=== PATIENT | male | born 1945 | race Hispanic/Latino ===

== ENCOUNTER 2017-11-05 08:55 | Inpatient (IN) | payer MEDICARE ==
[2017-11-05 09:39] LABS: #Eosinphils 0.1 thou/uL (0.0-0.7); #Monocytes 0.5 thou/uL (0.11-0.59); #Neutrophils 11.4 thou/uL (1.40-6.50); %Basophils 0.3 % (0.0-1.0); %Eosinophils 0.5 % (0.0-10.0); %Lymphocytes 7.4 % (21.0-51.0); %Neutrophils 87.9 % (42.0-75.0); Hemoglobin 14.6 g/dL (14.0-18.0); Mean Corpuscular HGB CONC 32.5 g/dL (32.0-36.0); Mean Corpuscular Hemoglobin 29.3 pg (27.0-31.0); Mean Corpuscular Volume 90.2 fl (80.0-94.0); Mean Platelet Volume 7.9 fL (7.4-10.4); Platelet Count 228 thou/uL (130-400); RBC Distribution Width 11.5 % (11.5-14.5); Red Blood Cell (RBC) Count 4.97 mill/uL (4.70-6.10)
[2017-11-05 09:49] LABS: PTT 23.8 SEC (22.9-36.1)
[2017-11-05 09:50] LABS: INR-International Normal Ratio 1.1; Prothrombin Time 14.2 SEC (12.0-14.7)
[2017-11-05 10:01] LABS: ALT (SGPT) 41 U/L (8-55); AST (SGOT) 25 U/L (5-34); Albumin 4.1 g/dL (3.4-4.8); Alkaline Phosphatase 79 U/L (40-150); Anion Gap 16 mmol/L (10-20); BUN (Urea Nitrogen) 24 mg/dL (8.4-25.7); Bilirubin, Total 0.4 mg/dL (0.2-1.2); CK (CPK) 122 U/L (30-200); Calc. Creatinine Clearance 0 mL/min (70-130); Calcium 9.4 mg/dL (7.8-10.44); Carbon Dioxide 22 mmol/L (23-31); Chloride 103 mmol/L (98-107); Estimated GFR-MDRD 41; Globulin 3.3 g/dL (2.4-3.5); Glucose 261 mg/dL (83-110); Lipase 16 U/L (8-78); Potassium 4.9 mmol/L (3.5-5.1); Protein, Total 7.4 g/dL (5.8-8.1); Sodium 136 mmol/L (136-145)
--- NOTE | 2017-11-05 10:02 | RAD ---
FRONTAL VIEW CHEST: Comparison: 07-05-10 Indication: Altered mental status. Patient found down. FINDINGS: The cardiomediastinal silhouette is prominent. There is mild patchy density at each lower lung zone w ith subtle obscuration of the right lateral costophrenic sulcus that may relate to small volume pleur al fluid versus volume loss. Chest is otherwise similar to 07-05-10. IMPRESSION: Prominent cardiomediastinal silhouette. Mild bibasilar patchy opacities as above. POS: H
[2017-11-05 10:04] LABS: CKMB 1.8 ng/mL (0-6.6)
[2017-11-05 10:19] LABS: Troponin I Less than 0.010 ng/mL (< 0.028)
[2017-11-05 10:28] LABS: Bilirubin Negative (Negative); Blood, Urine Negative (Negative); Clarity CLEAR (Clear); Glucose, Urine (Dipstick) 250 mg/dL (Negative); Leukocyte Negative (Negative); Nitrite Negative (Negative); Protein, Urine (Dipstick) Trace mg/dL (Neg-Trace); Specific Gravity, Urine 1.018 (1.002-1.036); Urobilinogen 0.2 mg/dL (0.2-1.0); pH, Urine 6.5 (5.0-9.0)
--- NOTE | 2017-11-05 10:50 | CT ---
CT BRAIN WITHOUT CONTRAST: Date: 11/05/17 HISTORY: Altered mental status. COMPARISON: CT brain dated 05/07/16. FINDINGS: There is encephalomalacia of the inferior right cerebellum. There is left frontal encephalomalacia. C hronic severe microangiopathic changes. Old right temporal infarction. No hemorrhage. No midline shift or mass effect. Mild mucosal thickening of the ethmoids. Mastoids are clear. Calvarium is intact. IMPRESSION: Extensive chronic multifocal chronic infarctions, as well as atrophy. No acute intracranial abnormali ty. POS: OFF
[2017-11-05] MEDS ORDERED: Acetaminophen 325 MG TAB PO PRN (12:14)
[2017-11-05] MEDS ORDERED: Dextrose 5% in Water 1,000 ML IV PRN (12:14)
[2017-11-05] MEDS ORDERED: Dextrose 50% Abboject 50 ML SYRINGE SLOW IVP PRN (12:14)
[2017-11-05] MEDS ORDERED: Acetaminophen 650 MG Suppository PR PRN (12:14)
[2017-11-05] MEDS ORDERED: HumaLOG 300 UNITS/3 ML VIAL SC PRN (12:14)
[2017-11-05] MEDS ORDERED: Ondansetron ODT 4 MG TAB PO PRN (12:14)
[2017-11-05] MEDS ORDERED: hydrALAZINE 20 MG/ML VIAL SLOW IVP PRN (12:20)
[2017-11-05 12:52] LABS: Troponin I Less than 0.010 ng/mL (< 0.028)
--- NOTE | 2017-11-05 13:19 | ULT ---
CAROTID ARTERIAL DOPPLER ULTRASOUND: DATE: 11/05/17 COMPARISON: 05/08/16. HISTORY: Left lower extremity weakness, assess for carotid artery disease. TECHNIQUE: Multiplanar Wilson scale sonographic imaging of the arterial structures of the neck obtained with color Doppler, including color flow and spectral analysis. FINDINGS: Antegrade blood flow and normal arterial waveforms are documented within the carotid and vertebral sy stem bilaterally. VESSEL PSV (cm/sec) EDV (cm/sec) Right CCA 82 15 Right ICA 62 17 Right ECA 81 15 Left CCA 83 13 Left ICA 42 15 Left ECA 63 10 ICA/CCA ratio is 0.8 on the right and 0.5 on the left. IMPRESSION: No hemodynamically significant stenosis on the basis of sonographic velocity criteria. POS: [facility]
--- NOTE | 2017-11-05 14:19 | HP ---
DATE OF ADMISSION: 11/05/2017 TIME OF SERVICE: 11:40. PRIMARY CARE PHYSICIAN: Dr. Chao at [facility]. CHIEF COMPLAINT: Altered mental status, left leg weakness. HISTORY OF PRESENT ILLNESS: Mr. Cantu is a 72-year-old male who speaks very little Israeli, who is a long-term resident over [facility] facility. The patient was last here in 04/2016, he presented at that time with right upper and lower extremity weakness. He had a right subarachnoid hemorrhage and was found to have a left thalamic infarct. At that time, he was sent to rehab initially and then to [facility] long-term. He normally gets around at the nursing facility in a wheelchair using his legs for propulsions. Today, he was found slumped over in his chair to an unknown side, not responding very clearly, and un able to move his left lower extremity. EMS was activated, he was brought to the emergency department for evaluation. In the ER, white blood cell count was slightly elevated at 13,000, lactic acid was 3.3, remainder of his lab work was fairly normal. CT of the brain was negative for acute changes. Chest x-ray showed mild patchy bilateral lower lobe opacities consistent with small volume fluid or volume loss. I did attempt to contact [facility], was put on hold and transferred 2 separate times and was hung upon both times and denies able to get any further history from the [facility]. The patient himself speaks very little Israeli. States he cannot move his left leg, although he does not seem too concerned about it. He says that is new today. Denies any other current complaints. Denies fevers or chills, no abdominal pain, no nausea and vomit ing, no chest pain, difficulty breathing. PAST MEDICAL HISTORY: 1. History of TIA. 2. History of subarachnoid hemorrhaging with right-sided defects. 3. History of cerebrovascular disease with thalamic infarct. 4. 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 5. Hypertension. 6. Diabetes mellitus type 2, non-insulin dependent. 7. GERD. 8. Glaucoma. 9. Dementia. 10. Unspecified mycosis? 11. CKD 3. PAST SURGICAL HISTORY: None. HOME MEDICATIONS: 1. Lipitor 20 mg p.o. at bedtime. 2. Glipizide 5 mg p.o. daily. 3. Losartan 100 mg daily. 4. Aspirin 325 mg daily. 5. MiraLax daily. 6. Tylenol p.r.n. 7. Trazodone 25 mg daily. 8. Travatan drops daily. ALLERGIES: NKDA. FAMILY HISTORY: Unknown. He denies history of cancer, blood tumors or free bleeders. SOCIAL HISTORY: Living at the [facility]. Negative habits x3. REVIEW OF SYSTEMS: A 10-point review of systems was performed. The patient denied any problems. Wh en asked specifically for each system, he denied any additional finding other than that was stated ab ove. PHYSICAL EXAMINATION: VITAL SIGNS: Temperature 97.5, pulse 89, blood pressure is 151/95, respiratory rate 18, satting 95% on room air. GENERAL: He is awake. He is alert. He is oriented to person and to [employer]. He does not know or can answer the name of the facility. HEENT: Normocephalic and atraumatic. Pupils are approximately 5 mm and reactive to light bilaterall y, mucous membranes moist. No visible lesions. No thrush. No uvula deviation. NECK: Supple. He has no lymphadenopathy, no JVD, no thyromegaly. Neck is supple. He has had sidra l carotid upstrokes. I do not appreciate bruits. LUNGS: Clear bilaterally. He has no wheezes, no rales, no rhonchi. He has good movement, good air exchange, and good chest excursion. It is symmetrical on both sides. He has no wheezes, rales, rhon chi or prolonged expiratory phase. CARDIOVASCULAR: He has normal cardia. Normal S1 and S2. I do not appreciate murmurs. He has no ru bs. ABDOMEN: Soft, slightly distended and tympanitic, but not tense. He has no rebound, rigidity, or gu arding. He has good bowel sounds in all 4 quadrants. EXTREMITIES: Show no cyanosis or clubbing. He has got trace edema in the bilateral lower extremitie s to the mid tibia level. He is able to move his right leg and perform most functions. His left low er leg is not moving much. SKIN: Warm, moist, and well perfused. He has no significant rashes or lesions. He does have some e xcoriations present on his bilateral lower legs. SKIN: Otherwise warm, moist, and well perfused. He has no other rashes or lesions. NEUROLOGIC: Shows cranial nerves II-XII grossly intact. He seems to have normal speech when he spea ks. He is alert and oriented x2 to person and city. His right upper extremity extensors are minimal to no function. He is able to squeeze my finger with 4/5 strength, but is unable to let go. His le ft upper extremity has 5/5 strength in all the extensor and flexor groups. Right lower extremity has 4-5/5 strength in the hip, thigh, and ankle extension and flexion. Left lower extremity has some mo vement with plantar stimulation mostly from the hip area. He is unable to withdraw from pain. LABORATORY DATA: On laboratory evaluation, sodium 136, potassium 4.9, chloride 103, bicarbonate 22, BUN 24, creatinine 1.65 and glucose of 261. Liver functions normal. CBC showed white count of 13.0, hemoglobin is 14.6, hematocrit of 44.9, platelets 270,000. He has pr fredo normal differential with 80% granulocytes. His BNP was 39.7. CK-MB of 1.8 and troponin I was l ess than 0.010. Ammonia level is normal 25. Lactic acid elevated at 3.3, INR 1.1, and TSH 4.55. RADIOGRAPHIC STUDIES: He had a CT scan of the brain that showed chronic microvascular changes and sc arring from his subarachnoid. Otherwise, negative. No acute changes. Chest x-ray showed mild patch y bilateral lower lobe opacities consistent with small volume fluid or volume loss. ASSESSMENT AND PLAN: 1. New left lower extremity paresis, appears patient may have had a cerebrovascular accident or stro ke. CT scan was negative for acute bleed. This would be likely ischemic. We will continue his aspi rin. We will continue his Lipitor, but increased to 40 mg at bedtime. We will get a fasting lipid p rofile in the morning. In the meantime, we will get his MRI and MRA of the brain, carotid ultrasound , and 2D echocardiogram. We will ask Neurology to evaluate. PT, OT and the speech therapy were cons ulted. 2. Hypertension. We will continue his losartan. 3. Diabetes mellitus type 2, hold glipizide for now and use sliding scale insulin. 4. Coronary artery disease. Start him on Protonix for gastrointestinal prophylaxis. 5. Glaucoma. Continue home eyedrops. 6. Dementia, stable. He is at his baseline per [facility] records. 7. Unspecified mycosis listed in his chart, unsure what that means. 8. Chronic kidney disease 3; creatinine normally 1.5-1.6. Glomerular filtration rate is in the 50s. This is unchanged from his normal. 9. The patient has an elevated white count, initially had an elevated heart rate that is improved, a nd lactic acid 3.3. I do not believe he is septic. We will continue to follow.
--- NOTE | 2017-11-05 16:52 | MRI ---
MRA [place] WITH 3D VOLUME RENDERING: Date: 11/05/16 CLINICAL HISTORY: Lower extremity paresis. History of right thalamic infarction. FINDINGS: There is limited evaluation of the vertebrobasilar system. Flow-related signal is seen within the dis yashira right vertebral artery and within the small caliber basilar artery. The distal left vertebral art sowmya likely terminates in PICA. This remains nonopacified by 3D [id number] imaging which therefore limits assessment. Each distal carotid artery is patent without high grade stenosis or occlusion. Bi lateral middle cerebral arteries are patent. Patent bilateral posterior communicating arteries are se en, which are prominent in size. There is small caliber of the bilateral P1 segments indicating type variant circulation. There is minimal flow-related signal in the left A1 segment and then not v isualized within the left A2 segment. A1 segment of right JED is patent. At the proximal aspect of th e A2 segment, there is diminutive flow which may be on the basis of focal stenosis or component of to rtuosity and artifact. Reference brain MRI for intracranial pathology. IMPRESSION: 1. Limited evaluation of vertebrobasilar system. There is nonvisualization of the distal left verteb ral artery. A diminutive basilar artery is present which may be on the basis of atherosclerosis. Ther e is also limited assessment of the dominant distal right vertebral artery. 2. Diseased left JED with moderate multifocal stenosis of left A1 and nonvisualization of left A2, a nd distally. 3. type variant circulation with diminutive bilateral P1 segments. The subsequent small calibe r bilateral CAP CUTTER reveal more distally located disease, left greater than right, notable at the P2-3 re gion. 4. Focal prominent stenosis at the proximal A2 segment right JED. POS: [facility]
--- NOTE | 2017-11-05 16:58 | MRI ---
MRI BRAIN WITHOUT IV CONTRAST: Date: 11/05/17 HISTORY: New left lower extremity paresis. Patient presents for altered mental status. The patient was last se en normal at approximately 6:30 this morning and was found slumped over in wheelchair. COMPARISON: 05/08/16. FINDINGS: There are scattered areas of restricted diffusion seen within the left frontal lobe, some of which ar e in a parafalcine location near the vertex, with additional areas in the anterior right frontal duke on, consistent with areas of lacunar infarction, a majority of which appear to be in the distribution of left anterior cerebral artery. As noted on the prior exam, there are areas of gliosis related to remote areas of infarction within t he bifrontal lobes, as well as involving the left posterior cerebral artery distribution and watershe d distribution of the left posterior cerebral and middle cerebral arteries. A few scattered areas of hemosiderin deposition are identified related to prior hemorrhagic conversion of areas of infarction. Increased FLAIR and T2-weighted signal intensity in the periventricular and subcortical white matter is again present, likely related to severe chronic small vessel ischemic changes. There is remote area of infarction again present in the right cerebellar hemisphere. Cerebral and cerebellar volume loss is again present. Ventricular system is stable in appearance comp ared to the prior study. The infarction in the left thalamus is less prominent on today's examination , and this is shown to represent an acute infarction on the study in 2016. Remote lacunar infarctions in each basal ganglia are present. IMPRESSION: 1. Scattered areas of acute infarction in the distribution of the right anterior cerebral artery, as well as in watershed distribution of the anterior right MCA/JED distribution. 2. Multiple bilateral remote infarctions as described above, as well as chronic small vessel ischemi c changes and involutional changes of the brain. CODE T. POS: [facility]
[2017-11-05 17:34] LABS: Lactic Acid 3.8 mmol/L (0.5-2.2)
[2017-11-05] MEDS ORDERED: Famotidine 20 MG TAB ONE (21:15)
[2017-11-05] MEDS ORDERED: Atorvastatin Calcium 40 MG TAB PO SCH (21:30)
[2017-11-05] MEDS: Atorvastatin Calcium 40 MG TAB PO SCH (22:43)
[2017-11-05] MEDS: Famotidine 20 MG TAB PO SCH (22:43)
[2017-11-05] MEDS: Sodium Chloride 0.9% 1,000 ML IV SCH (23:00)
[2017-11-06 00:14] VITALS: BMI 29.2
[2017-11-06] MEDS: cloNIDine 0.1 MG TAB PO PRN (02:20)
[2017-11-06 05:55] LABS: Hemoglobin A1c 7.1 % (4.0-6.0)
[2017-11-06 06:10] LABS: Anion Gap 12 mmol/L (10-20); BUN (Urea Nitrogen) 20 mg/dL (8.4-25.7); Calc. Creatinine Clearance 56 mL/min (70-130); Calcium 9.1 mg/dL (7.8-10.44); Carbon Dioxide 23 mmol/L (23-31); Cardiac Risk 2.8 (Less than 4.5); Chloride 106 mmol/L (98-107); Cholesterol 104 mg/dl (< 200 Desired); Estimated GFR-MDRD 50; Glucose 153 mg/dL (83-110); HDL Cholesterol 37 mg/dL (>60 Neg Risk); LDL Cholesterol, Calculated 56 mg/dL; Potassium 4.3 mmol/L (3.5-5.1); Sodium 137 mmol/L (136-145); Triglycerides 56 mg/dL (Less than 150)
[2017-11-06 06:13] LABS: #Eosinphils 0.1 thou/uL (0.0-0.7); #Lymphocytes 2.4 thou/uL (1.20-3.40); #Monocytes 0.6 thou/uL (0.11-0.59); #Neutrophils 6.6 thou/uL (1.40-6.50); %Basophils 0.4 % (0.0-1.0); %Eosinophils 0.8 % (0.0-10.0); %Lymphocytes 24.6 % (21.0-51.0); %Monocytes 6.5 % (0.0-10.0); %Neutrophils 67.7 % (42.0-75.0); Hemoglobin 13.1 g/dL (14.0-18.0); Mean Corpuscular Hemoglobin 29.7 pg (27.0-31.0); Mean Corpuscular Volume 90.1 fl (80.0-94.0); Mean Platelet Volume 8.1 fL (7.4-10.4); Platelet Count 220 thou/uL (130-400); RBC Distribution Width 11.5 % (11.5-14.5); Red Blood Cell (RBC) Count 4.42 mill/uL (4.70-6.10); White Blood Cell (WBC) Count 9.7 thou/uL (4.8-10.8)
[2017-11-06] MEDS ORDERED: Prevnar 13-Val Conj/PF 0.5 ML SYRINGE IM ONE (09:00)
[2017-11-06] MEDS ORDERED: FLU VACC TS2017-18 (>65YR) 0.5 ML SYRINGE IM ONE (09:00)
[2017-11-06] MEDS: Aspirin 325 MG TAB PO SCH (09:06)
[2017-11-06] MEDS: Losartan 25 MG TAB PO SCH (09:06)
[2017-11-06] MEDS: Sodium Chloride 0.9% 1,000 ML IV SCH ×2 (09:49→18:30)
--- NOTE | 2017-11-06 11:51 | PDOC.PN ---
- Subjective Encounter Start Date: 11/06/17 Encounter Start Time: 09:10 PT seen on rounds, no acute events overnight. oving left leg better, but still profoundly weak. nO FC, no N/v/D/C. MRI with R JAMIN distribution acute infarcts and watershed infarcts to R JAMIN and R MCA distribution. Jeanine po. Neuro has not seenyet, likely due to pt being held in ER 10 point ROS performed and neg for all system except as above - Objective MAR Reviewed: Yes Vital Signs & Weight: Vital Signs (12 hours) Pulse Pulse BP BP 11/06/17 09:15 72 70 164/83 H 167/83 H Result Diagrams: 11/06/17 05:05 11/06/17 05:05 Additional Labs: Accuchecks 11/06/17 11:13 POC Glucose 179 H Radiology Reviewed by me: Yes EKG Reviewed by me: Yes Phys Exam - Physical Examination Constitutional: NAD HEENT: PERRLA, moist MMs, sclera anicteric, oral pharynx no lesions Neck: no nodes, no JVD, supple, full ROM Respiratory: no wheezing, no rales, no rhonchi, clear to auscultation bilateral Cardiovascular: RRR, no significant murmur, no rub Gastrointestinal: soft, non-tender, no distention, positive bowel sounds Musculoskeletal: pulses present, edema present CN intact, RUE ith extensor weakness, flexors, RLE 4/5. LUe 5/5, LLE 2/5 Lymphatic: no nodes Psychiatric: normal affect, A&O x 3 Skin: no rash, normal turgor, cap refill <2 seconds Dx/Plan (1) Acute ischemic right JAMIN stroke Code(s): I63.521 - CEREB INFRC D/T UNSP OCCLS OR STENOS OF RIGHT ANT CEREB ART Status: Acute Comment: R jamin and mna watershed. echo pending. neuro consult pending (2) Diabetes Code(s): E11.9 - TYPE 2 DIABETES MELLITUS WITHOUT COMPLICATIONS Status: Acute Qualifiers: Diabetes mellitus type: type 2 Diabetes mellitus complication status: with unspecified complications (3) CKD (chronic kidney disease) stage 2, GFR 60-89 ml/min Code(s): N18.2 - CHRONIC KIDNEY DISEASE, STAGE 2 (MILD) Status: Chronic (4) Dyslipidemia Code(s): E78.5 - HYPERLIPIDEMIA, UNSPECIFIED Status: Chronic (5) HTN (hypertension) Code(s): I10 - ESSENTIAL (PRIMARY) HYPERTENSION Status: Chronic Qualifiers: Hypertension type: essential hypertension Qualified Code(s): I10 - Essential (primary) hypertension (6) Hx TIA/stroke w/o resid Code(s): Z86.73 - PRSNL HX OF TIA (TIA), AND CEREB INFRC W/O RESID DEFICITS Status: Chronic - Plan cont current plan of care, PT/OT, speech therapy * .
[2017-11-06] MEDS: Atorvastatin Calcium 40 MG TAB PO SCH (21:31)
[2017-11-06] MEDS: Famotidine 20 MG TAB PO SCH (21:31)
[2017-11-07] MEDS: cloNIDine 0.1 MG TAB PO PRN ×2 (00:40→12:00)
--- NOTE | 2017-11-07 03:10 | CON ---
DATE OF CONSULTATION: 11/06/2017 REFERRING PHYSICIAN: Dr. Nathaniel Gonzalez. REASON FOR CONSULTATION: Altered mental status. HISTORY OF PRESENT ILLNESS: Mr. Cantu is a 72-year-old male who has been concerned for e valuation of altered mental status. History is obtained from patient's medical chart as patient is u nable to provide any history. Apparently, patient has a history of stroke in 04/2016 at which time, he was brought into the [facility]. He had a right hemiparesis at that time, he was found t o have left thalamic infarct and right subarachnoid hemorrhage. He has been in a rehabilitation faci lity and into the long-term care detention. He was noted by detention staff to be not respondi ng very clearly, unable to move his left lower extremity, which prompted them to call EMS and patient was brought to the [place] [facility]. On arrival here, he had a CT scan of the head done, w hich showed no acute intracranial abnormality. He was noted to have elevated WBC and lactic acid. Nick kim was thus admitted for further evaluation. His chest x-ray also showed bilateral lower lobe opaciti es consistent with a small volume of fluid. PAST MEDICAL HISTORY: Significant for hypertension, diabetes, GERD, history of stroke, history of stephen barachnoid hemorrhage, glaucoma, dementia, and chronic kidney disease stage 3. PAST SURGICAL HISTORY: None significant. SOCIAL HISTORY: He denies any smoking. He does not smoke, drink alcohol, or use illicit drugs. He is currently living at detention facility. CURRENT MEDICATIONS: Please review MAR. ALLERGIES: No known drug allergies. FAMILY HISTORY: Noncontributory. REVIEW OF SYSTEMS: Unable to perform. PHYSICAL EXAMINATION: VITAL SIGNS: Blood pressure 154/82, pulse of 70, temperature of 97.8, respirations of 18, O2 sats of 97% on room air. GENERAL: Well-developed, well-nourished male in no apparent distress. RESPIRATORY: Clear to auscultation bilaterally. CARDIOVASCULAR: Regular rate and rhythm. NEUROLOGIC: Mental status: Patient is awake and alert and oriented x2. He is able to state his nam e and current location. He is able to follow some simple commands. Speech and language: Somewhat d ysarthric. Cranial nerves: Pupils are 3 mm and reactive. He blinks to threat on both sides. Face appears symmetric. Tongue and uvula are midline. Motor exam showed normal tone and bulk with 5/5 st rength in both upper extremities. He was able to move his right lower extremity with a 5/5 strength to hip flexion and foot dorsiflexion. There was no movement noted in the left lower extremity. Sens ory: He grimaces to pain on the left both upper and lower extremities. LABORATORY DATA: Reviewed, which included CBC, coag panel, CMP, lipid profile, and urinalysis, which is significant for hemoglobin of 13.1, hematocrit of 39.9, WBC of 13.0, creatinine of 1.4, glucose o f 200, otherwise unremarkable. IMAGING STUDIES: MRI brain without contrast was reviewed, which showed watershed infarct in the righ t JED, MCA territory as well as posterior right JED ischemic infarct. MR angiogram of the head was r eviewed, which showed diseased left JED with moderate multifocal stenosis of the left A1 and nonvisua lization of left A2. Carotid Doppler results were reviewed, which showed hemodynamically significant stenosis on both carotid arteries. IMPRESSION: 1. Watershed infarct involving the right anterior cerebral artery. 2. Hypertension. 3. Dementia. ASSESSMENT AND PLAN: Mr. Cantu is a 72-year-old male, presented with the left lower extr emity weakness. He is found to have a posterior right JED territory ischemic infarct along with wate rshed infarcts involving the right JED and MCA territory. At this time, I will recommend continuing PT, OT, speech therapy. I would also agree with increasing his aspirin to 325 mg daily. I would rec ommend to keep his systolic blood pressure greater than 110 or above. Continue supportive care. Chanelle palomares is okay to be discharged to a detention when medically ready.
[2017-11-07] MEDS: Sodium Chloride 0.9% 1,000 ML IV SCH (04:52)
--- NOTE | 2017-11-07 09:12 | DIS ---
DATE OF ADMISSION: 11/06/2017 DATE OF DISCHARGE: 11/07/2017 DISCHARGE DIAGNOSES: 1. Acute right posterior, anterior cerebral artery ischemic stroke. 2. Hyperlipidemia. 3. Hypertension. 4. Diabetes mellitus type 2, non-insulin dependent. 5. Chronic kidney disease stage 2. CONSULTATIONS: Neurology, Dr. Napoles. PROCEDURES: A 2D echocardiogram on 11/06/2017 that revealed EF of 55%-60%, trace MR, mild TR and sli ghtly elevated pulmonary artery pressure of 34 mm, carotid Doppler study on 11/05/2017 that showed he modynamic significant stenosis based on sonographic velocity data, brain MRI showed a right JED distr ibution and right MCA distribution, watershed acute infarcts. MRI showed multiple areas of significa nt diffuse stenotic cerebrovascular disease. HOSPITAL COURSE: Mr. Cantu is a 72-year-old gentleman who is a resident of a intermediate. He cruz d a history of a subarachnoid hemorrhage and prior thalamic stroke with residual right-sided weakness , but still functional. He stays in the wheelchair, motors around the intermediate. He was noted on the day of admission to be slumped over in his chair, difficult to arouse and not using his left leg . He was sent to the emergency department for evaluation. There, findings were confirmed, we were called for admission. The patient was initially placed in observation; however, initial MRI showed acute infarct and he was advanced to full inpatient admission. MRI and MRA were performed, 2D echocardiogram and carotid ult rasound were done with the above findings. Neurology was consulted, the patient continued on full do se of aspirin and Lipitor pending Neurology evaluation. The patient had some improvement in function from 11/05/2017 to 11/06/2017. Neurology did see him an d recommended continuing full dose of aspirin and increase dose of Lipitor and it was okay to dischar ge back to the intermediate. Today, the patient is stable and he was stable for discharge. On physical examination, the patient was seen and examined on the day of discharge. Discharge plan a nd disposition were discussed with the patient, the patient was seen and examined at bedside, though due to language barrier and probably some baseline dementia, unsure how much he really got. DISCHARGE MEDICATIONS: 1. Aspirin 325 mg daily. 2. Lipitor increased to 40 mg p.o. at bedtime. 3. Tylenol 650 mg p.o. q.6 hours p.r.n. pain. 4. Glipizide 5 mg daily. 5. Losartan 100 mg daily. 6. MiraLax 17 grams daily. 7. Multivitamin daily. 8. Travatan Z 1 drop each eye q.p.m. 9. Trazodone 25 mg p.o. at bedtime p.r.n. insomnia. DISCHARGE DIET: Heart healthy recommended. DISCHARGE ACTIVITY: Per tolerance. The patient is being sent with PT, OT, and speech therapy. DISCHARGE CONDITION: Stable. DISPOSITION: Being discharged back to [facility]. FOLLOWUP APPOINTMENTS: 1. Primary care physician within a week. 2. Dr. Natalia Napoles in 2-3 weeks.
[2017-11-07] MEDS: Aspirin 325 MG TAB PO SCH (10:21)
[2017-11-07] MEDS: Losartan 25 MG TAB PO SCH (10:22)
[2017-11-07 11:51] VITALS: TEMP 97.8
[2017-11-07 12:38] VITALS: BP 144/77
== END 2017-11-07 13:28 | DRG 65 ==
LOC: ERS 08:55 → ERHOLD 12:14 → 2SE 22:40 → OBSVTOIN 11-06 09:13
PROVIDERS: ADMIT Internal Medicine Infectious Disease; ATTEND Internal Medicine Infectious Disease
DX: I63.521 Cerebral infarction due to unspecified occlusion or stenosis of right anterior cerebral artery (principal); G81.91 Hemiplegia, unspecified affecting right dominant side; E11.22 Type 2 diabetes mellitus with diabetic chronic kidney disease; F03.90 Unspecified dementia, unspecified severity, without behavioral disturbance, psychotic disturbance, mood disturbance, and anxiety; E78.5 Hyperlipidemia, unspecified; I12.9 Hypertensive chronic kidney disease with stage 1 through stage 4 chronic kidney disease, or unspecified chronic kidney disease; N18.2 Chronic kidney disease, stage 2 (mild); K21.9 Gastro-esophageal reflux disease without esophagitis
CPT/HCPCS: 36415; 36416; 51701; 70450; 70544; 70551; 71045; 80048; 80053; 80061; 81003; 82140; 82550; 82553; 83036; 83605; 83690; 83880; 84443; 84484; 85025; 85610; 85730; 87040; 93005; 93306; 93880; 96361; 96365; 96366; 96367; G8978-GP-CM; G8979-GP-CL; G8987-GO-CM; G8988-GO-CM; G8989-GO-CM; G8996-GN-CK; G8997-GN-CJ; J0360; J1956; J3370

== ENCOUNTER 2020-09-15 15:12 | Inpatient (IN) | payer MEDICARE, MEDICAID ==
[2020-09-15 15:48] LABS: Hemoglobin 15.6 g/dL (14.0-18.0); Mean Corpuscular Hemoglobin 27.5 pg (27.0-31.0); Mean Corpuscular Volume 88.7 fL (78.0-98.0); Mean Platelet Volume 9.8 fL (7.4-10.4); Platelet Count 323 thou/uL (130-400); RBC Distribution Width 12.3 % (11.5-14.5); Red Blood Cell (RBC) Count 5.68 mill/uL (4.70-6.10)
[2020-09-15] MEDS ORDERED: Cefepime 2 GM VIAL ONE ×2 (15:57→23:13)
[2020-09-15] MEDS ORDERED: Acetaminophen 650 MG Suppository ONE (15:57)
--- NOTE | 2020-09-15 15:58 | CT ---
CT head noncontrast HISTORY: Altered mental status. COMPARISON: 11/05/2017. FINDINGS: There is no evidence of acute intracranial hemorrhage or infarct. Scattered areas of enceph alomalacia and chronic ischemic small vessel disease are similar in appearance to the prior exam. Mild diffuse cortical atrophy. There is no mass effect or shift of midline structures. Calcified optic nerve head drusen are now mor e apparent. Visualized paranasal sinuses remain well aerated. IMPRESSION : Chronic-type findings are stable. No acute intracranial abnormalities are demonstrated.
--- NOTE | 2020-09-15 16:03 | RAD ---
Chest one view HISTORY: Chest pain. COMPARISON: 11/05/2017. FINDINGS: Cardiac silhouette is magnified by projection. Pulmonary vasculature is unremarkable. Shall ow inspiration accentuates pulmonary markings. Mediastinum is midline. Prominence of the aortic arch is unchanged from the previous exam. No conflue nt airspace consolidation or evidence of pneumothorax. IMPRESSION : No active cardiopulmonary abnormalities are demonstrated.
[2020-09-15 16:11] LABS: ALT (SGPT) 60 U/L (8-55); AST (SGOT) 27 U/L (5-34); Albumin 3.8 g/dL (3.4-4.8); Alkaline Phosphatase 124 U/L (40-110); Anion Gap 15 mmol/L (10-20); BUN (Urea Nitrogen) 66 mg/dL (8.4-25.7); Bilirubin, Total 0.9 mg/dL (0.2-1.2); Calc. Creatinine Clearance 0 mL/min (70-130); Calcium 9.9 mg/dL (7.8-10.44); Carbon Dioxide 32 mmol/L (23-31); Chloride 112 mmol/L (98-107); Estimated GFR-MDRD 20; Globulin 4.5 g/dL (2.4-3.5); Glucose 146 mg/dL (83-110); Potassium 4.1 mmol/L (3.5-5.1); Protein, Total 8.3 g/dL (5.8-8.1); Sodium 155 mmol/L (136-145)
[2020-09-15 16:13] LABS: Band 17 % (5-11); Eosinophils 1 % (0-10); Hypochromia SLIGHT = 6-15 cells (100X) (0-5/hpf); Lymphocytes 9 % (21-51); MDiff Complete? YES; Monocytes 2 % (0-10); Neutrophil 71 % (42-75); Platelet Morphology Comment Appears Adequate
[2020-09-15] MEDS ORDERED: Vancomycin 1.5 GRAM/300 ML BAG 1.5 GM in Premix Bag 1 BAG IVPB SCH (16:30)
[2020-09-15] MEDS ORDERED: Norepinephrine 8 MG in Dextrose 5% in Water 242 ML IVPB SCH (17:30)
[2020-09-15 18:47] LABS: Bilirubin Negative (Negative); Blood, Urine Negative (Negative); Clarity Clear (Clear); Glucose, Urine (Dipstick) Normal (Negative); Ketone, Urine Negative (Negative); Leukocyte Negative Leu/uL (Negative); Nitrite Negative (Negative); Protein, Urine (Dipstick) 10 mg/dL (Neg-Trace); Specific Gravity, Urine 1.022 (1.002-1.036)
--- NOTE | 2020-09-15 20:14 | PDOC.FPRHP ---
- History of Present Illness Chief Complaint: dysphagia History of Present Illness: 74 yo M presents from [facility] (PCP [facility]) for dysphagia. He was recently diagnosed with thrush, and was having difficulty swallowing, and per ER notes there was concern for possible aspiration. 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 In the ED, he is unable to give a history due to mental status, unknown baseline. He is febrile to 101.9. Tachypneic to 22, tachycardic low 100s. Unable to contact long term staff or family for further history. At times he responds to commands, but answers questions inconsistently. CXR and CT brain showed no acute findings. CT chest/abd/pelv significant for L kidney masses, large stool ball, and possible small RUL infiltrate. Lab significant for WBC 24 with bandemia, Na 155, Chl 112, CO2 32, BUN/Cr of 66/3.0. ALT mildly elevated at 60, Alk phost of 124. EKG showed QT prolongation. Covid screen negative. UA negative for signs of infection. Pt was given vanc, cefepime, and 30 ml/kg bolus. Blood cultures are pending. - Allergies/Adverse Reactions Allergies Allergy/AdvReac Type Severity Reaction Status Date / Time No Known Drug Allergies Allergy Verified 09/17/20 00:19 - Home Medications Medication Instructions Recorded Confirmed Type Losartan Potassium [Cozaar] 100 mg PO DAILY #0 tab 05/25/16 09/16/20 Rx Multivitamin W/ Minerals 1 tab PO DAILY #0 tab 05/25/16 09/16/20 Rx [Theragran M] Polyethylene Glycol 3350 [Miralax] 17 gm PO DAILY #0 pk 05/25/16 09/16/20 Rx glipiZIDE [Glucotrol XL] 5 mg PO DAILY #0 tab 05/25/16 09/16/20 Rx Acetaminophen [Tylenol Extra 650 mg PO Q8H PRN 11/06/17 09/16/20 History Strength] Travoprost [Travatan Z] 1 drop EA EYE QPM 11/06/17 09/16/20 History Amlodipine [Norvasc] 5 mg PO DAILY 09/16/20 09/16/20 History Ascorbic Acid [Vitamin C] 1,000 mg PO DAILY 09/16/20 09/16/20 History Aspirin [Aspirin EC] 81 mg PO DAILY 09/16/20 09/16/20 History Atorvastatin Calcium [Lipitor] 20 mg PO HS 09/16/20 09/16/20 History Brimonidine Tartrate [Alphagan P 1 drop EA EYE BID 09/16/20 09/16/20 History 0.1% Ophth Soln] Hydrochlorothiazide 50 mg PO DAILY 09/16/20 09/16/20 History Insulin Detemir [Levemir] 15 units SQ HS 09/16/20 09/16/20 History Insulin Detemir [Levemir] 30 unit SQ QAM 09/16/20 09/16/20 History Insulin Regular, Human [Novolin R] 3 units IJ PRN PRN 09/16/20 09/17/20 History Levothyroxine Sodium 25 mcg PO DAILY 09/16/20 09/16/20 History Nystatin 100,000 Units/mL 5 ml PO TID 09/16/20 09/16/20 History [Mycostatin Oral Suspension] Zinc 50 mg PO DAILY 09/16/20 09/16/20 History Amoxicillin/Potassium Clav 875 mg PO Q12HR #12 tab 09/20/20 Rx [Augmentin] - History PMHx: TIA, ischemic CVA, SAH, T2DM, HTN, cough, GERD, hemiplegia, HLD, dementia, thrush PSHx: none FHx: unknown Social: per ER records no hx of t/a/d use. Lives at [facility]. - Review of Systems ROS unobtainable: due to mental status - Vital signs BP: 107/62 HR: 103 RR: 19 Tmax: 101.9 Pox: 95% on RA Wt: 70 kg - Physical Exam Constitutional: NAD -Constitutional: Awake, alert, responds to some commands. Answers questions inconsistently. Mostly nods yes or no. HEENT: normocephalic and atraumatic, PERRLA, EOMI, conjunctiva clear -HEENT: MM dry, Large amount of food/mucus in mouth Neck: supple, other (+LAD bilat cervical Mouth: erythema with white chunks) Heart: RRR, normal S1/S2, no murmurs/rubs/gallops, pulses present Lungs: CTAB, no respiratory distress, no rales/rhonchi, other (transmitted upper airway sounds) Abdomen: soft, non-tender, bowel sounds present, no masses/distention -Musculoskeletal: Rt arm contracture, 4/5 strength RUE, 5/5 LUE and BLE. Skin: no rash/lesions -Skin: cool extremities Heme/Lymphatic: no unusual bruising or bleeding, no purpura Psychiatric: other (answers questions inconsistently, flat affect) FMR H&P: Results - Labs Result Diagrams: 09/20/20 04:22 09/20/20 04:22 Lab results: WBC 24.0 thou/uL (4.8-10.8) H 09/15/20 15:37 Hgb 15.6 g/dL (14.0-18.0) 09/15/20 15:37 Hct 50.4 % (42.0-52.0) 09/15/20 15:37 MCV 88.7 fL (78.0-98.0) 09/15/20 15:37 Plt Count 323 thou/uL (130-400) 09/15/20 15:37 Band Neuts % (Manual) 17 % (5-11) H 09/15/20 15:37 Sodium 155 mmol/L (136-145) H 09/15/20 15:37 Potassium 4.1 mmol/L (3.5-5.1) 09/15/20 15:37 Chloride 112 mmol/L (98-107) H 09/15/20 15:37 Carbon Dioxide 32 mmol/L (23-31) H 09/15/20 15:37 BUN 66 mg/dL (8.4-25.7) H 09/15/20 15:37 Creatinine 3.00 mg/dL (0.7-1.3) H 09/15/20 15:37 Glucose 146 mg/dL (83-110) H 09/15/20 15:37 Lactic Acid 1.9 mmol/L (0.5-2.2) 09/15/20 15:37 Calcium 9.9 mg/dL (7.8-10.44) 09/15/20 15:37 Total Bilirubin 0.9 mg/dL (0.2-1.2) 09/15/20 15:37 AST 27 U/L (5-34) 09/15/20 15:37 ALT 60 U/L (8-55) H 09/15/20 15:37 Alkaline Phosphatase 124 U/L (40-110) H 09/15/20 15:37 Serum Total Protein 8.3 g/dL (5.8-8.1) H 09/15/20 15:37 Albumin 3.8 g/dL (3.4-4.8) 09/15/20 15:37 Urine Ketones Negative mg/dL (Negative) 09/15/20 18:16 Urine Blood Negative (Negative) 09/15/20 18:16 Urine Nitrite Negative (Negative) 09/15/20 18:16 Ur Leukocyte Esterase Negative Elisabet/uL (Negative) 09/15/20 18:16 - EKG Interpretation EKG: NSR Qt prolonged, tachycardic 100 FMR H&P: A/P - Plan SIRS, unknown source -Febrile to 101.9, tachycardic, tachypneic, WBC 24 with bandemia. LA normal. Unknown source at this time, covid negative -UA does not show signs of infection -Oral Thrush- do not suspect peritonsillar abscess on exam -No skin breakdown over sacrum -Possible pneumonia RUL seen on CT chest, procal pending -Continue vanc and cefepime -Blood cultures pending Dysphagia Oral Thrush -Nystatin SSW -Discussed oral care with nurse -NPO for speech consult Hypotension likely 2/2 dehydration vs infection -responded well to 30 ml/kg bolus -fluids as below -Monitor MAP Hypovolemic Hypernatremia -Na 155 -likely chronic, possibly from difficulties with PO intake due to oral thrush -s/p ~2.5 L in ED -D5 1/2 NS @ 100 ml/hr, LR @ 100 ml/hr -Free water deficit of 2.4 L -q4h BMPs MIKE on CKD3A -BUN/CR 66/3.0 -FENA: likely pre-renal cause -Fluid resuscitation as above -Strict I/O -renally dose medications L Renal masses -seen on ch/abd/pelv CT -F/u Renal US pending for further characterization Constipation -stool ball on CT, concern for stercoral proctitis -s/p bedside disimpaction -continue rectal bowel regimen while NPO QT prolongation -avoid QT prolonging medications Transaminitis -Mildly elevated ALT and alk phos -check AM cmp DM2 -continue home levemir, accuchecks with mild SSI HTN -hold home antihypertensives Hypothyroidism -continue home medications once no longer NPO Dementia -aware, unknown baseline. Attempted to contact family and long term and was unsuccessful. PMH of CVA and SAH -with RUE deficit Diet: NPO GI ppx: famotidine IV DVT ppx: heparin Code status: Full code per NH paperwork; unable to contact long term or spouse via listed phone numbers PCP: [facility], Dr. Nilsa Pardo Dispo: Admit to IMCU for borderline BPs, LOS >2 midnights Radha Ricketts MD PGY3 FMR H&P: Upper Level - Plan Date/Time: 09/15/202012 I, [], have evaluated this patient and agree with findings/plan as outlined by internet marketing intern resident. Pertinent changes/additions are listed here. Addendum - Attending - Attending Attestation Date/Time: 09/24/20 1212 I personally evaluated the patient and discussed the management with Dr. Oconnell I agree with the History, Examination, Assessment and Plan documented above with any addition or exceptions noted below - 74 yo M with h/o CVA and SAH with re sidual right hempliegia, DM, HTN, GERD presents from [facility] (PCP [facility]) for dysphagia. He was recently diagnosed with thrush, and was having difficulty swallowing, and per ER notes there was concern for possible aspiration. T101.9 P 107->102 BP 89/61->126/69 RR15 Exam repeated by me and agree with resident's documentation. Labs: WBC=24.0, H/H=15.6/50.4, Dyk=593, Diff=71N/17B, Hs=824, K=4.1, Cb=270, CO2=32, BUN/Cr=66/3.0, ALT=60, Bjeh=270, AST=27 A/P: 1) Sepsis secondary to possible aspiration pneumonia- Admit to IMCU for close monitoring due to hypotension. Continue current abx. Blood and urine cultures collected. 2) Hypotension- resolved with fluid bolus; continue to monitor closely. 3) DM- monitor accuchecks.
--- NOTE | 2020-09-15 20:42 | CT ---
CT thorax noncontrast CT abdomen noncontrast CT pelvis noncontrast: DATE: 09/15/2020 HISTORY: 74-year-old male with chest pain and anorexia COMPARISON: None FINDINGS: Large amount of stool distending the rectum, with AP and transverse dimensions of 7.9 x 6.5 cm. No mu ral thickening. Mild posterior perirectal edema including presacral space. Moderate amount of stool in other portions of the large intestine, without distention. Normal appendix. Within the limitations of a noncontrast scan, no major pathology identified involving abdominal aorta , pancreas, adrenals, urinary bladder, spleen, or liver. No colonic diverticulitis, ascites, small bowel dilation, or pneumoperitoneum. No hydronephrosis. No renal, ureteral, or bladder calculus. A smoothly well-circumscribed round 5.8 x 4.8 x 4.3 cm mass at the left renal midpole, exophytically protruding posterolaterally, with density of 39 Hounsfield units. A similar-appearing 4.6 x 3.4 x 4.2 cm mass at lower pole of left kidney, with density of 22 Hounsfie ld units. No thoracic aortic aneurysm. Trachea and bilateral mainstem bronchi are patent and clear. Thin, broad layer of dependent subsegmental atelectasis abutting the right posterior pleural surface, versus tiny right pleural effusion. No left pleural effusion. No pneumothorax. At the posterior lateral aspect of the right upper lobe, abutting the major fissure and close to the lateral pleural s urface, there is a small patchy alveolar infiltrate. Nonspecific mild pulmonary densities at posterior base of right lower lobe. Left lung is relatively clear. No compression fracture of thoracic or lumbar spine. IMPRESSION: 1.) Fecal impaction in rectum. Increased risk for stercoral proctitis. 2) 2 moderately large left renal masses: Hemorrhagic renal cysts versus solid tumors. Recommend renal ultrasound. 3) small right upper lobe infiltrate, possibly representing acute pneumonia.
[2020-09-15 21:44] LABS: SARS-CoV-2 NAA Rapid Test Not Detected (NotDetected)
[2020-09-15] MEDS: Dextrose 5 %-0.45 % NaCl 1,000 ML IV SCH (21:59)
[2020-09-15] MEDS ORDERED: Dextrose 5% in Water 1,000 ML IV PRN (22:48)
[2020-09-15] MEDS ORDERED: Dextrose 50% Abboject 50 ML SYRINGE SLOW IVP PRN (22:48)
[2020-09-15] MEDS ORDERED: Acetaminophen 325 MG TAB PO PRN (22:48)
[2020-09-15 23:36] LABS: Anion Gap 19 mmol/L (10-20); BUN (Urea Nitrogen) 56 mg/dL (8.4-25.7); Calc. Creatinine Clearance 0 mL/min (70-130); Calcium 7.6 mg/dL (7.8-10.44); Carbon Dioxide 16 mmol/L (23-31); Chloride 123 mmol/L (98-107); Estimated GFR-MDRD 30; Glucose 144 mg/dL (83-110); Potassium 4.3 mmol/L (3.5-5.1); Sodium 154 mmol/L (136-145)
[2020-09-15 23:38] LABS: Actual Bicarbonate (HCO3a) 19.9 mEq/L (22-28); Analyzer IN Cardio ER; Base Excess (BEa) -4.6 mEq/L (-2.0 to +3.0); Calcium, Ionized (arterial) 1.12 mmol/L (1.12-1.30); Carboxyhemoglobin (COHb) 0.3 gm% (0.0-3.0); Hemoglobin (Hb) 12.4 g/dL (14.0-18.0); O2 Tension (PaO2), arterial 73.1 mmHg (> 70.0); Potassium - ABG Lab 3.86 mmol/L (3.70-5.30); pH, Arterial 7.37 (7.35-7.45)
[2020-09-15 23:40] LABS: Puncture Site RRA
[2020-09-16 00:14] LABS: Troponin I 0.122 ng/mL (< 0.028)
[2020-09-16] MEDS: Cefepime 2 GM in Sodium Chloride 0.9% 100 ML IVPB SCH (00:30)
[2020-09-16] MEDS ORDERED: Cefepime 2 GM in Sodium Chloride 0.9% 100 ML IVPB SCH (01:00)
[2020-09-16] MEDS ORDERED: Lactated Ringer's 1,000 ML IV SCH (01:45)
[2020-09-16] MEDS ORDERED: Nystatin 100,000 Units/mL UDCUP SSW SCH ×2 (02:15→09:00)
[2020-09-16] MEDS ORDERED: Nystatin 500,000 UNITS/5 ML UDCUP PO SCH (03:00)
[2020-09-16 04:10] LABS: #Lymphocytes 1.3 thou/uL (1.20-3.40); #Neutrophils 15.3 thou/uL (1.40-6.50); %Basophils 0.1 % (0.0-1.0); %Eosinophils 0.2 % (0.0-10.0); %Lymphocytes 7.4 % (21.0-51.0); %Monocytes 5.8 % (0.0-10.0); %Neutrophils 86.5 % (42.0-75.0); Hemoglobin 12.3 g/dL (14.0-18.0); Mean Corpuscular HGB CONC 31.2 g/dL (32.0-36.0); Mean Corpuscular Hemoglobin 27.9 pg (27.0-31.0); Mean Corpuscular Volume 89.6 fL (78.0-98.0); Mean Platelet Volume 9.5 fL (7.4-10.4); Platelet Count 231 thou/uL (130-400); RBC Distribution Width 12.1 % (11.5-14.5); Red Blood Cell (RBC) Count 4.39 mill/uL (4.70-6.10); White Blood Cell (WBC) Count 17.7 thou/uL (4.8-10.8)
[2020-09-16 04:39] LABS: ALT (SGPT) 42 U/L (8-55); AST (SGOT) 29 U/L (5-34); Albumin 2.9 g/dL (3.4-4.8); Alkaline Phosphatase 93 U/L (40-110); Anion Gap 16 mmol/L (10-20); BUN (Urea Nitrogen) 52 mg/dL (8.4-25.7); Bilirubin, Total 0.7 mg/dL (0.2-1.2); Calc. Creatinine Clearance 0 mL/min (70-130); Calcium 7.8 mg/dL (7.8-10.44); Carbon Dioxide 20 mmol/L (23-31); Chloride 119 mmol/L (98-107); Estimated GFR-MDRD 29; Globulin 3.3 g/dL (2.4-3.5); Glucose 239 mg/dL (83-110); Potassium 3.7 mmol/L (3.5-5.1); Protein, Total 6.2 g/dL (5.8-8.1); Sodium 151 mmol/L (136-145)
--- NOTE | 2020-09-16 06:07 | PDOC.FM ---
- Subjective Subjective: Patient is still down in the ER. He was resting comfortably in bed. He is unable to answer questions properly. Per the nurse, no acute events. He is now producing urine, but has not had a BM. Will attempt to contact family today. - Objective MAR Reviewed: Yes Result Diagrams: 09/16/20 03:51 09/16/20 07:39 Phys Exam - Physical Examination Constitutional: NAD dry MM, significant amount of yellow mucous Neck: supple, full ROM Respiratory: no wheezing, no rales, no rhonchi multiple upper airway sounds Cardiovascular: RRR, no significant murmur Gastrointestinal: soft, positive bowel sounds Musculoskeletal: no edema contracture of right upper extremity Deviation from normal: unable to properly answer questions Skin: no rash Dx/Plan - Plan Plan: SIRS, unknown source -Febrile to 101.9, tachycardic, tachypneic, WBC 24 with bandemia. LA normal. Unknown source at this time, covid negative, consider possible fungal septicemia vs. malignancy vs. pneumonia -UA does not show signs of infection -Oral Thrush- do not suspect peritonsillar abscess on exam -No skin breakdown over sacrum -Possible pneumonia RUL seen on CT chest, procal -Continue vanc and cefepime -Blood cultures and urine cx pending -peripheral smear pending -started on IV micafungin Dysphagia Oral Thrush -due to cognitive function, nystatin not possible -will start IV micafungin -Discussed oral care with nurse -NPO for speech consult Hypotension likely 2/2 dehydration vs infection -responded well to 30 ml/kg bolus -fluids as below -Monitor MAP Hypovolemic Hypernatremia -Na 155 > 151 > 150 -likely chronic, possibly from difficulties with PO intake due to oral thrush, speech consulted -s/p ~2.5 L in ED -D5 1/2 NS @ 120 -repeat BMP at 1200, will continue to monitor MIKE on CKD3A, improving -BUN/CR 66/3.0 >> 49/2.01 -FENA: likely pre-renal cause -Fluid resuscitation as above -Strict I/O -renally dose medications L Renal masses -seen on ch/abd/pelv CT -Renal US: renal cysts Constipation -stool ball on CT, concern for stercoral proctitis -s/p bedside disimpaction -Fleet enema ordered, will continue aggressive bowel regimen -KUB ordered for this afternoon QT prolongation -avoid QT prolonging medications Transaminitis -Mildly elevated ALT and alk phos -check AM cmp DM2 -continue home levemir, accuchecks with mild SSI HTN -hold home antihypertensives Hypothyroidism -continue home medications once no longer NPO Dementia -aware, unknown baseline -will attempt to contact family PMH of CVA and SAH -with RUE deficit Dispo: Admit to IMCU for borderline BPs, LOS >2 midnights Addendum - Attending - Attending Attestation Date/Time: 09/16/20 [id number] I personally evaluated the patient and discussed the management with Dr. Baum. I agree with the History, Examination, Assessment and Plan documented above with any addition or exceptions noted below. Patient improving overnight. Will contact family and discuss baseline status and GOC. He met SIRS criteria on admission but to date does not have a source of infection identified. Procal is down trending. Continue abx for now but I susp ect most of his symptoms are related to significant dehydration. continue free water replacement.
[2020-09-16] MEDS: Levothyroxine Sodium 25 MCG TAB PO SCH (06:17)
[2020-09-16] MEDS: Aspirin 81 mg Enteric Coated Tablet PO SCH (06:17)
[2020-09-16] MEDS: Dextrose 5 %-0.45 % NaCl 1,000 ML IV SCH ×3 (07:40→17:32)
[2020-09-16 08:11] LABS: Anion Gap 13 mmol/L (10-20); BUN (Urea Nitrogen) 49 mg/dL (8.4-25.7); Calc. Creatinine Clearance 0 mL/min (70-130); Calcium 7.8 mg/dL (7.8-10.44); Carbon Dioxide 20 mmol/L (23-31); Chloride 121 mmol/L (98-107); Estimated GFR-MDRD 32; Glucose 244 mg/dL (83-110); Potassium 3.9 mmol/L (3.5-5.1); Sodium 150 mmol/L (136-145)
[2020-09-16] MEDS: Multivitamin W/ Minerals 1 TAB PO SCH (08:31)
[2020-09-16] MEDS ORDERED: Heparin 10,000 UNITS/ 10 ML VIAL ONE (08:45)
[2020-09-16] MEDS ORDERED: HumaLOG 300 UNITS/3 ML VIAL ONE (08:49)
[2020-09-16] MEDS: HumaLOG 300 UNITS/3 ML VIAL SC PRN (08:51)
[2020-09-16] MEDS ORDERED: Famotidine/PF 20 mg/2ml Vial ONE ×3 (08:54→22:07)
[2020-09-16] MEDS: Famotidine/PF 20 mg/2ml Vial SLOW IVP SCH ×2 (08:59→22:12)
[2020-09-16] MEDS ORDERED: Non-Formulary Item 1 EACH (Insulin Detemir [Levemir] 100 UNIT/ML Vial) SQ SCH ×2 (09:00→21:00)
[2020-09-16] MEDS ORDERED: Nystatin 500,000 UNITS/5 ML UDCUP SSW SCH (09:00)
[2020-09-16] MEDS ORDERED: Fluconazole In NaCl,Iso-Osm 200 MG in Premix Bag 1 BAG IVPB SCH (09:00)
--- NOTE | 2020-09-16 09:03 | ULT ---
US Renal Bilateral STANDARD: 09/16/2020 12:00 AM CLINICAL HISTORY: Cysts. STUDY: Renal ultrasound COMPARISON: CT abdomen/pelvis 09/15/2020 FINDINGS: Right kidney: Echogenicity: Normal. Masses/cysts: None. Hydronephrosis: None. Calcifications: None. Length: 8.3 cm Left kidney: Echogenicity: Normal. Masses/cysts: 2 anechoic cysts measuring up to 4.9 cm in size. Hydronephrosis: None. Calcifications: None. Length: 13.3 cm Limited visualization of the urinary bladder is unremarkable. IMPRESSION: Left renal cysts
[2020-09-16] MEDS ORDERED: Fleet Enema 133 ML BOT PR SCH (09:45)
[2020-09-16 10:11] LABS: Band 9 % (5-11); Eosinophils 4 % (0-10); Lymphocytes 8 % (21-51); Monocytes 7 % (0-10); Platelet Morphology Comment Appears Adequate; Polychromasia SLIGHT = 2-3 cells (100X) (0-2/hpf)
[2020-09-16 10:12] LABS: Neutrophil 72 % (42-75)
[2020-09-16] MEDS: Micafungin 100 MG in Sodium Chloride 0.9% 100 ML IVPB SCH (10:20)
[2020-09-16] MEDS ORDERED: Bisacodyl 10 MG SUPP ONE (10:46)
[2020-09-16] MEDS: Insulin Glargine 30 UNITS in Pre-Filled Syringe 1 EACH SC SCH (11:09)
[2020-09-16] MEDS: Brimonidine Tartrate 0.2% Ophth Soln 5 ml Bottle EA EYE SCH ×2 (11:09→22:05)
[2020-09-16] MEDS: Heparin 5,000 UNITS/ML VIAL SC SCH ×2 (11:09→17:31)
[2020-09-16] MEDS: Bisacodyl 10 MG SUPP PR SCH ×2 (11:12→21:58)
[2020-09-16] MEDS ORDERED: Acetaminophen 650 MG Suppository ONE ×2 (11:49→21:44)
[2020-09-16] MEDS: Acetaminophen 650 MG Suppository PR PRN ×2 (12:07→21:58)
[2020-09-16 12:51] LABS: Anion Gap 14 mmol/L (10-20); BUN (Urea Nitrogen) 44 mg/dL (8.4-25.7); Calc. Creatinine Clearance 0 mL/min (70-130); Calcium 7.8 mg/dL (7.8-10.44); Carbon Dioxide 19 mmol/L (23-31); Chloride 120 mmol/L (98-107); Estimated GFR-MDRD 36; Glucose 216 mg/dL (83-110); Potassium 3.9 mmol/L (3.5-5.1); Sodium 149 mmol/L (136-145)
[2020-09-16] MEDS ORDERED: [UNRECOGNIZED DRUG - REMARK] IVPB SCH (17:00)
[2020-09-16 17:43] LABS: Vancomycin, Random 9.7 ug/mL (See Comment)
[2020-09-16 18:11] LABS: Anion Gap 18 mmol/L (10-20); BUN (Urea Nitrogen) 39 mg/dL (8.4-25.7); Calc. Creatinine Clearance 0 mL/min (70-130); Calcium 8.3 mg/dL (7.8-10.44); Carbon Dioxide 15 mmol/L (23-31); Chloride 120 mmol/L (98-107); Estimated GFR-MDRD 38; Glucose 215 mg/dL (83-110); Sodium 149 mmol/L (136-145)
[2020-09-16] MEDS ORDERED: Atorvastatin Calcium 40 MG TAB PO SCH (21:00)
--- NOTE | 2020-09-16 21:56 | RAD ---
Portable frontal chest radiograph: 09/16/2020 COMPARISON: 09/15/2020 HISTORY: Trouble swallowing FINDINGS: The heart and mediastinal contours are stable. There are stable patchy nonspecific areas of linear density in the perihilar regions and medial lung bases, new when compared to the prior exam. No focal consolidation. No pneumothorax or large volume pleural effusion. IMPRESSION: Mild new linear density in the perihilar regions and lung bases. Findings may signify vol ume loss, developing edema, or developing infectious pneumonitis. Recommend short-term follow-up imaging of the chest following treatment.
[2020-09-16] MEDS: Insulin Glargine 15 UNITS in Pre-Filled Syringe 1 EACH SC SCH (21:58)
[2020-09-16] MEDS: Atorvastatin Calcium 20 MG TAB PO SCH (22:04)
[2020-09-17 01:56] LABS: Chloride 120 mmol/L (98-107)
[2020-09-17 01:57] LABS: Calcium 7.9 mg/dL (7.8-10.44); Glucose 219 mg/dL (83-110); Potassium 3.9 mmol/L (3.5-5.1); Sodium 147 mmol/L (136-145)
[2020-09-17 01:59] LABS: Carbon Dioxide 13 mmol/L (23-31)
[2020-09-17 02:01] LABS: Calc. Creatinine Clearance 0 mL/min (70-130); Estimated GFR-MDRD 41
[2020-09-17 02:02] LABS: BUN (Urea Nitrogen) 36 mg/dL (8.4-25.7)
[2020-09-17] MEDS: Heparin 5,000 UNITS/ML VIAL SC SCH ×4 (02:11→23:00)
[2020-09-17] MEDS: Cefepime 2 GM in Sodium Chloride 0.9% 100 ML IVPB SCH (02:12)
[2020-09-17] MEDS: Dextrose 5 %-0.45 % NaCl 1,000 ML IV SCH (02:15)
[2020-09-17 02:32] LABS: Anion Gap 20 mmol/L (10-20)
[2020-09-17] MEDS: Latanoprost 0.005% Ophth Soln 2.5 ml Bottle EA EYE SCH ×2 (03:27→23:01)
[2020-09-17 03:57] LABS: #Basophils 0.1 thou/uL (0.0-0.2); #Eosinphils 0.2 thou/uL (0.0-0.7); #Lymphocytes 1.7 thou/uL (1.20-3.40); #Monocytes 0.6 thou/uL (0.11-0.59); #Neutrophils 9.1 thou/uL (1.40-6.50); %Basophils 0.4 % (0.0-1.0); %Eosinophils 1.4 % (0.0-10.0); %Lymphocytes 14.4 % (21.0-51.0); %Monocytes 5.4 % (0.0-10.0); %Neutrophils 78.3 % (42.0-75.0); Mean Corpuscular HGB CONC 31.1 g/dL (32.0-36.0); Mean Corpuscular Hemoglobin 27.9 pg (27.0-31.0); Mean Corpuscular Volume 89.6 fL (78.0-98.0); Mean Platelet Volume 10.5 fL (7.4-10.4); Platelet Count 163 thou/uL (130-400); RBC Distribution Width 12.1 % (11.5-14.5); Red Blood Cell (RBC) Count 4.68 mill/uL (4.70-6.10); White Blood Cell (WBC) Count 11.6 thou/uL (4.8-10.8)
[2020-09-17 04:09] LABS: ALT (SGPT) 37 U/L (8-55); AST (SGOT) 33 U/L (5-34); Albumin 2.7 g/dL (3.4-4.8); Alkaline Phosphatase 106 U/L (40-110); Anion Gap 15 mmol/L (10-20); BUN (Urea Nitrogen) 33 mg/dL (8.4-25.7); Bilirubin, Total 0.6 mg/dL (0.2-1.2); Calc. Creatinine Clearance 0 mL/min (70-130); Carbon Dioxide 18 mmol/L (23-31); Chloride 119 mmol/L (98-107); Estimated GFR-MDRD 43; Globulin 3.3 g/dL (2.4-3.5); Glucose 189 mg/dL (83-110); Potassium 3.4 mmol/L (3.5-5.1); Sodium 149 mmol/L (136-145)
[2020-09-17 04:13] VITALS: BMI 23.6
[2020-09-17 04:19] LABS: Troponin I 0.108 ng/mL (< 0.028)
--- NOTE | 2020-09-17 06:30 | PDOC.FM ---
- Subjective Subjective: Patient was AAOx1 this morning. Clinically, he appears more hydrated. Overnight, he became bradycardic and his BPs remained soft. At that time the night residents evaluated the patient and obtained an Xray, troponin, and repeat COVID swab. - Objective MAR Reviewed: Yes Vital Signs & Weight: Vital Signs (12 hours) Temp Pulse Ox 09/17/20 04:07 97.2 F L 09/16/20 23:38 97.9 F 09/16/20 23:15 100 09/16/20 21:58 100.0 F H Weight Weight 74.571 kg Most Recent Monitor Data Heart Rate from ECG 49 NIBP 90/51 NIBP BP-Mean 64 Respiration from ECG 16 SpO2 100 Result Diagrams: 09/17/20 03:18 09/17/20 13:33 Phys Exam - Physical Examination Constitutional: NAD dry MM, less mucus than yesterday Neck: supple, full ROM poor inspiratory effort, no noticable wheezing or rales Cardiovascular: RRR Gastrointestinal: soft, non-tender, positive bowel sounds Musculoskeletal: no edema contraction of right arm Deviation from normal: AAOx1 Skin: no rash Dx/Plan - Plan Plan: SIRS, unknown source -Febrile to 101.9, tachycardic, tachypneic, WBC 24 with bandemia. LA normal. Unknown source at this time, covid negative, consider possible fungal septicemia vs. malignancy vs. pneumonia -UA does not show signs of infection -Oral Thrush- do not suspect peritonsillar abscess on exam -No skin breakdown over sacrum -Possible pneumonia RUL seen on CT chest, procal -Continue vanc and cefepime -Blood cultures and urine cx pending -peripheral smear pending -started on IV micafungin -repeat COVID negative -Chest XR: possible viral pneumonitis -will obtain respiratory viral panel and flu swab -could be 2/2 to severe dehydration Dysphagia Oral Thrush -due to cognitive function, nystatin not possible -will start IV micafungin -Discussed oral care with nurse -NPO for speech consult, recommendations not yet made Hypotension likely 2/2 dehydration vs infection -responded well to 30 ml/kg bolus -fluids as below -Monitor MAP -troponin: normal Hypovolemic Hypernatremia -Na 155 > 151 > 150 > 149 -likely chronic, possibly from difficulties with PO intake due to oral thrush, speech consulted -s/p ~2.5 L in ED -D5 1/2 NS @ 120, will DC and switch to D5W with repeat BMP at 1200 MIKE on CKD3A, improving -BUN/CR 66/3.0 >> 49/2.01 -FENA: likely pre-renal cause -Fluid resuscitation as above -Strict I/O -renally dose medications L Renal masses -seen on ch/abd/pelv CT -Renal US: renal cysts Constipation -stool ball on CT, concern for stercoral proctitis -s/p bedside disimpaction -reported BM, held enema and KUB -will continue aggressive bowel regimen QT prolongation -avoid QT prolonging medications Transaminitis, resolved -Mildly elevated ALT and alk phos on admission -check AM cmp DM2 -continue home levemir, accuchecks with mild SSI HTN -hold home antihypertensives Hypothyroidism -continue home medications once no longer NPO Dementia -aware, unknown baseline -unable to reach family, will attempt to talk to [place] PMH of CVA and SAH -with RUE deficit Dispo: will continue to monitor in IMCU and investigate for source of infection, symptoms could possibly be 2/2 to severe dehydration Addendum - Attending - Attending Attestation Date/Time: 09/17/20 8660 I personally evaluated the patient and discussed the management with Dr. Baum. I agree with the History, Examination, Assessment and Plan documented above with any addition or exceptions noted below. Pt's XR shows a developing pneumonia. Continue antibiotics. There is concern for viral pneumonia. Getting respiratory viral panel. Repeat covid negative. Will await cultures.
--- NOTE | 2020-09-17 08:21 | RAD ---
Chest one view HISTORY: Pneumonia. Follow-up. COMPARISON: 09/16/2020. FINDINGS: Cardiac silhouette is magnified by projection. Pulmonary vasculature upper limits of normal and accentuated by shallow inspiration. Mediastinum is midline. Patchy ill-defined areas of groundglass infiltrate at the lateral aspect of the right mid lung zone h as increased. Patchy bibasilar infiltrates are unchanged. No evidence of pneumothorax. IMPRESSION : Slight interval worsening of patchy groundglass parenchymal infiltrate. Please correlate clinically f or multifocal viral pneumonitis. Other findings are stable.
[2020-09-17 08:39] LABS: SARS-CoV-2 MS2 Positive; SARS-CoV-2 N Gene Negative; SARS-CoV-2 S Gene Negative; SARS-CoV-2 by NAA Not Detected (NotDetected); SARS-CoV-2 orf1ab Negative
[2020-09-17] MEDS: Brimonidine Tartrate 0.2% Ophth Soln 5 ml Bottle EA EYE SCH ×2 (09:47→23:01)
[2020-09-17] MEDS: Famotidine/PF 20 mg/2ml Vial SLOW IVP SCH ×2 (09:47→23:00)
[2020-09-17] MEDS: Dextrose 5% in Water 1,000 ML IV SCH ×2 (09:49→10:55)
[2020-09-17] MEDS: Aspirin 81 mg Enteric Coated Tablet PO SCH (10:52)
[2020-09-17] MEDS: Bisacodyl 10 MG SUPP PR SCH ×2 (10:53→23:02)
[2020-09-17] MEDS: Levothyroxine Sodium 25 MCG TAB PO SCH (10:53)
[2020-09-17] MEDS: Multivitamin W/ Minerals 1 TAB PO SCH (10:53)
[2020-09-17] MEDS: Insulin Glargine 30 UNITS in Pre-Filled Syringe 1 EACH SC SCH (10:56)
[2020-09-17] MEDS ORDERED: Fleet Enema 133 ML BOT PR SCH (11:30)
--- NOTE | 2020-09-17 12:40 | CON ---
DATE OF CONSULTATION: HISTORY OF PRESENT ILLNESS: The patient in the hospital, came in from [facility] with dysphagia. He had recent diagnosis of thrush and difficulty breathing. There was concern he might be aspirating. He was hypertensive. The patient is unable to give any history. He has had previous history of CVA and dementia. One of the nurses works in the hospital, knows the patient's family very well. 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 Because of his dementia, he is in the [facility]. PAST MEDICAL HISTORY: CVA with thalamic infarct, right upper extremity weakness, hypertension, diabetes, reflux, glaucoma, dementia, and renal failure. PAST SURGICAL HISTORY: Previous surgeries, otherwise none recently. SOCIAL HISTORY: Tobacco, none. Alcohol, none. HOME MEDICATIONS: Includes; 1. Insulin. 2. Hydrochlorothiazide. 3. Aspirin. 4. Glipizide. 5. Eye drops. 6. Losartan 100. 7. Synthroid 25. 8. Levemir 30. 9. Amlodipine 5. He is now started on; 1. Vancomycin. 2. Micafungin. 3. Synthroid. 4. Maxipime for presumed sepsis. All cultures are negative. PHYSICAL EXAMINATION: GENERAL: He has no verbal communication. VITAL SIGNS: Temperature 98, pulse 72, blood pressure 100/70, 18. CHEST: No wheezing. No crackles. CARDIAC: Normal S1 and S2. No gallops. ABDOMEN: No masses. LABORATORY DATA: Creatinine 1.59, this appears to be at his baseline level. White count 11,000 and slight left shift. His BNP was 278. Chest x-ray, I did not see any infiltrates. CT chest did show a questionable right upper lung infiltrate. He had a serology done repeated, which is not negative. ASSESSMENT AND PLAN: Possibly pneumonia, aspiration, dysphagia, renal failure, advanced age, and dementia. I agree with present broad-spectrum antibiotics, de-escalate once we get the cultures back. Probably going to need some Speech evaluation for his dysphagia. He may require a PEG at some place if he does not improve the swallowing. Pulmonary will follow while in the MICU. Address his code status. Job ID: [id number]
[2020-09-17] MEDS: Micafungin 100 MG in Sodium Chloride 0.9% 100 ML IVPB SCH (12:48)
[2020-09-17 13:58] LABS: Anion Gap 14 mmol/L (10-20); BUN (Urea Nitrogen) 28 mg/dL (8.4-25.7); Calc. Creatinine Clearance 44 mL/min (70-130); Calcium 8.1 mg/dL (7.8-10.44); Carbon Dioxide 20 mmol/L (23-31); Chloride 115 mmol/L (98-107); Estimated GFR-MDRD 46; Glucose 181 mg/dL (83-110); Potassium 3.4 mmol/L (3.5-5.1); Sodium 146 mmol/L (136-145)
--- NOTE | 2020-09-17 17:13 | EKG ---
Test Reason : Blood Pressure : / mmHG Vent. Rate : 100 BPM Atrial Rate : 100 BPM P-R Int : 134 ms QRS Dur : 070 ms QT Int : 398 ms P-R-T Axes : 056 015 050 degrees QTc Int : 513 ms Normal sinus rhythm Low voltage QRS Cannot rule out Inferior infarct , age undetermined Cannot rule out Anterior infarct , age undetermined Prolonged QT Abnormal ECG Confirmed by PATTI MAYER DO ([id number]), society editor ANH WOO ([id number]) on 09/17/2020 5:13:26 PM Referred By: Confirmed By:PATTI MAYER DO
[2020-09-17] MEDS: Dextrose 5%-Lactated Ringers 1,000 ML IV SCH (17:32)
[2020-09-17 19:20] LABS: Vancomycin, Trough 5.4 ug/mL
[2020-09-17] MEDS ORDERED: Vancomycin HCl 1.25 GM in Sodium Chloride 0.9% 250 ML 250 ML IVPB SCH (21:00)
[2020-09-17 21:14] LABS: Anion Gap 17 mmol/L (10-20); BUN (Urea Nitrogen) 25 mg/dL (8.4-25.7); Calc. Creatinine Clearance 46 mL/min (70-130); Calcium 7.8 mg/dL (7.8-10.44); Carbon Dioxide 16 mmol/L (23-31); Chloride 116 mmol/L (98-107); Estimated GFR-MDRD 48; Glucose 165 mg/dL (83-110); Potassium 3.7 mmol/L (3.5-5.1); Sodium 145 mmol/L (136-145)
[2020-09-17] MEDS: Atorvastatin Calcium 20 MG TAB PO SCH (22:04)
[2020-09-17] MEDS: Insulin Glargine 15 UNITS in Pre-Filled Syringe 1 EACH SC SCH (22:05)
[2020-09-18] MEDS: Cefepime 2 GM in Sodium Chloride 0.9% 100 ML IVPB SCH (02:02)
[2020-09-18 04:20] LABS: #Eosinphils 0.2 thou/uL (0.0-0.7); #Lymphocytes 2.2 thou/uL (1.20-3.40); #Monocytes 0.9 thou/uL (0.11-0.59); #Neutrophils 8.3 thou/uL (1.40-6.50); %Basophils 0.1 % (0.0-1.0); %Eosinophils 1.8 % (0.0-10.0); %Lymphocytes 19.3 % (21.0-51.0); %Monocytes 7.9 % (0.0-10.0); %Neutrophils 70.9 % (42.0-75.0); Hemoglobin 12.8 g/dL (14.0-18.0); Mean Corpuscular HGB CONC 32.4 g/dL (32.0-36.0); Mean Corpuscular Hemoglobin 28.8 pg (27.0-31.0); Mean Corpuscular Volume 88.7 fL (78.0-98.0); Mean Platelet Volume 10.6 fL (7.4-10.4); Platelet Count 172 thou/uL (130-400); RBC Distribution Width 11.8 % (11.5-14.5); Red Blood Cell (RBC) Count 4.44 mill/uL (4.70-6.10); White Blood Cell (WBC) Count 11.6 thou/uL (4.8-10.8)
--- NOTE | 2020-09-18 05:03 | PDOC.FM ---
- Subjective Subjective: Patient was AAOx1, resting comfortably in bed. I talked to the yesterday who is unsure of the patient's baseline mentation. She reports that due to COVID she has not seen him since December. I also attempted to call the prison yesterday and left my personal cell phone number. I have not yet heard back from the prison. Patient appears to be improving clinically. He was unable to tell me if he was in any pain this morning. Per nursing, his IV did infiltrate yesterday and a new one was placed. - Objective MAR Reviewed: Yes Vital Signs & Weight: Vital Signs (12 hours) Temp Pulse Ox 09/18/20 03:49 98.4 F 09/18/20 00:16 98.7 F 09/17/20 20:00 100 09/17/20 19:14 98.1 F Weight Weight 73.618 kg Most Recent Monitor Data Heart Rate from ECG 70 NIBP 105/63 NIBP BP-Mean 77 Respiration from ECG 12 SpO2 96 I&O: 09/16/20 09/17/20 09/18/20 06:59 06:59 06:59 Intake Total 2340 Balance 2340 Result Diagrams: 09/18/20 03:43 09/18/20 07:29 Phys Exam - Physical Examination Constitutional: NAD HEENT: moist MMs thrush resolving, thick yellow mucus resolved Neck: supple, full ROM lungs appear clear, but poor inspiratory effort. Cardiovascular: RRR Gastrointestinal: soft, positive bowel sounds Musculoskeletal: no edema right arm contracture Deviation from normal: AAOx1 Skin: no rash Dx/Plan - Plan Plan: SIRS, unknown source -Febrile to 101.9, tachycardic, tachypneic, WBC 24 with bandemia. LA normal. Unknown source at this time, covid negative, consider possible fungal septicemia vs. malignancy vs. pneumonia -UA does not show signs of infection -Oral Thrush- do not suspect peritonsillar abscess on exam -No skin breakdown over sacrum -Possible pneumonia RUL seen on CT chest, procal -Continue vanc and cefepime for broad spectrum coverage -Blood cultures and urine cx: NGTD -peripheral smear pending -started on IV micafungin, continue x1 week -repeat COVID negative -Chest XR: possible viral pneumonitis -respiratory viral panel and flu swab: negative -could be 2/2 to severe dehydration Dysphagia Oral Thrush -due to cognitive function, nystatin not possible -will start IV micafungin x1 week -Discussed oral care with nurse -NPO for speech consult, recommended that patient remain NPO, will continue to work with patient, may need PEG tube discussion in near future. -Palliative care consulted for goals of care discussion with family Hypotension likely 2/2 dehydration vs infection, improving -responded well to 30 ml/kg bolus -fluids as below -Monitor MAP -troponin: normal Hypovolemic Hypernatremia -Na 155 > 151 > 150 > 149 > 145 -likely chronic, possibly from difficulties with PO intake due to oral thrush, speech consulted, see above -s/p ~2.5 L in ED -currently on D5LR @ 75 mls/hr MIKE on CKD3A, improving -BUN/CR 66/3.0 >> 49/2.01 > 27/1.42 -FENA: likely pre-renal cause -Fluid resuscitation as above -Strict I/O -renally dose medications L Renal masses -seen on ch/abd/pelv CT -Renal US: renal cysts Constipation -stool ball on CT, concern for stercoral proctitis -s/p bedside disimpaction -BM overnight -s/p enema, will continue aggressive bowel regimen QT prolongation -avoid QT prolonging medications Transaminitis, resolved -Mildly elevated ALT and alk phos on admission -check AM cmp DM2 -continue home levemir, accuchecks with mild SSI HTN -hold home antihypertensives Hypothyroidism -continue home medications once no longer NPO Dementia -aware, unknown baseline -family unsure of baseline, unable to reach prison PMH of CVA and SAH -with RUE deficit Dispo: will transfer to tele for further medical management, palliative consulted for goals of care discussion with family Addendum - Attending - Attending Attestation Date/Time: 09/18/20 1343 I personally evaluated the patient and discussed the management with Dr. Baum. I agree with the History, Examination, Assessment and Plan documented above with any addition or exceptions noted below. MIKE continues to improve. Continuing antibiotics. Awaiting final cultures. Pt stable to transfer to telemetry. Pt not safe to swallow at this time. Goals of care will be discussed with family. Palliative care consult placed.
[2020-09-18] MEDS: Aspirin 81 mg Enteric Coated Tablet PO SCH (06:29)
[2020-09-18] MEDS: Levothyroxine Sodium 25 MCG TAB PO SCH (06:29)
[2020-09-18 08:16] LABS: ALT (SGPT) 39 U/L (8-55); AST (SGOT) 34 U/L (5-34); Albumin 2.6 g/dL (3.4-4.8); Alkaline Phosphatase 102 U/L (40-110); Anion Gap 13 mmol/L (10-20); BUN (Urea Nitrogen) 24 mg/dL (8.4-25.7); Bilirubin, Total 0.9 mg/dL (0.2-1.2); Calc. Creatinine Clearance 47 mL/min (70-130); Calcium 8.1 mg/dL (7.8-10.44); Carbon Dioxide 22 mmol/L (23-31); Chloride 114 mmol/L (98-107); Estimated GFR-MDRD 50; Globulin 3.1 g/dL (2.4-3.5); Glucose 144 mg/dL (83-110); Potassium 3.2 mmol/L (3.5-5.1); Protein, Total 5.7 g/dL (5.8-8.1); Sodium 146 mmol/L (136-145)
[2020-09-18] MEDS: Dextrose 5%-Lactated Ringers 1,000 ML IV SCH ×2 (09:48→18:33)
[2020-09-18] MEDS: Brimonidine Tartrate 0.2% Ophth Soln 5 ml Bottle EA EYE SCH ×2 (09:48→22:50)
[2020-09-18] MEDS: Insulin Glargine 30 UNITS in Pre-Filled Syringe 1 EACH SC SCH (09:49)
[2020-09-18] MEDS: Famotidine/PF 20 mg/2ml Vial SLOW IVP SCH ×2 (09:49→22:50)
[2020-09-18] MEDS: Heparin 5,000 UNITS/ML VIAL SC SCH ×3 (09:49→22:50)
[2020-09-18] MEDS: Multivitamin W/ Minerals 1 TAB PO SCH (09:50)
[2020-09-18] MEDS: Bisacodyl 10 MG SUPP PR SCH ×2 (09:50→22:49)
--- NOTE | 2020-09-18 11:54 | PRG ---
DATE OF SERVICE: 09/18/2020 SUBJECTIVE: Casey Cantu is a 74-year-old gentleman, remains in the ICU. OBJECTIVE: VITAL SIGNS: His temperature is 99.8, sats 90% on room air, respiratory rate 18, and blood pressure 123/60. GENERAL: Appears to be in no distress, status post CVA, aphasic. CHEST: No wheezing. No crackles. CARDIAC: Normal S1, S2. No gallops. ABDOMEN: No masses. LABORATORY DATA: Creatinine 1.38. White count 22223. So far all cultures are negative. ASSESSMENT: 1. Mild congestive heart failure. 2. Cerebrovascular accident, febrile illness, possibly aspiration. 3. Hypovolemia, improved. 4. Dementia. PLAN: Pulmonary guevara, start to deescalate the antibiotics once we have the cultures back. He can probably be transferred out of the MICU. Still apparently full code. Job ID: [id number]
[2020-09-18] MEDS: Micafungin 100 MG in Sodium Chloride 0.9% 100 ML IVPB SCH (14:23)
[2020-09-18] MEDS: HumaLOG 300 UNITS/3 ML VIAL SC PRN (18:01)
[2020-09-18 21:50] LABS: Vancomycin, Random 15.5 ug/mL (See Comment)
[2020-09-18] MEDS: Atorvastatin Calcium 20 MG TAB PO SCH (22:49)
[2020-09-18] MEDS: Latanoprost 0.005% Ophth Soln 2.5 ml Bottle EA EYE SCH (22:50)
[2020-09-18] MEDS: Insulin Glargine 15 UNITS in Pre-Filled Syringe 1 EACH SC SCH (23:08)
[2020-09-18] MEDS ORDERED: Vancomycin HCl 500 MG in Sodium Chloride 0.9% 100 ML IVPB SCH (23:59)
[2020-09-19] MEDS: HumaLOG 300 UNITS/3 ML VIAL SC PRN ×3 (00:35→12:25)
[2020-09-19] MEDS: Cefepime 2 GM in Sodium Chloride 0.9% 100 ML IVPB SCH (01:36)
[2020-09-19 04:16] LABS: #Eosinphils 0.1 thou/uL (0.0-0.7); #Lymphocytes 1.6 thou/uL (1.20-3.40); #Monocytes 0.6 thou/uL (0.11-0.59); #Neutrophils 4.9 thou/uL (1.40-6.50); %Basophils 0.2 % (0.0-1.0); %Eosinophils 1.2 % (0.0-10.0); %Lymphocytes 22.6 % (21.0-51.0); %Monocytes 8.1 % (0.0-10.0); Hemoglobin 12.3 g/dL (14.0-18.0); Mean Corpuscular HGB CONC 32.5 g/dL (32.0-36.0); Mean Corpuscular Volume 89.2 fL (78.0-98.0); Platelet Count 195 thou/uL (130-400); RBC Distribution Width 11.7 % (11.5-14.5); Red Blood Cell (RBC) Count 4.26 mill/uL (4.70-6.10); White Blood Cell (WBC) Count 7.3 thou/uL (4.8-10.8)
[2020-09-19 04:34] LABS: ALT (SGPT) 43 U/L (8-55); AST (SGOT) 40 U/L (5-34); Albumin 2.4 g/dL (3.4-4.8); Alkaline Phosphatase 118 U/L (40-110); Anion Gap 13 mmol/L (10-20); BUN (Urea Nitrogen) 21 mg/dL (8.4-25.7); Bilirubin, Total 0.5 mg/dL (0.2-1.2); Calc. Creatinine Clearance 46 mL/min (70-130); Calcium 7.9 mg/dL (7.8-10.44); Carbon Dioxide 21 mmol/L (23-31); Chloride 113 mmol/L (98-107); Estimated GFR-MDRD 49; Globulin 3.2 g/dL (2.4-3.5); Glucose 226 mg/dL (83-110); Potassium 3.5 mmol/L (3.5-5.1); Protein, Total 5.6 g/dL (5.8-8.1); Sodium 143 mmol/L (136-145)
--- NOTE | 2020-09-19 06:08 | PDOC.FM ---
- Subjective Subjective: Patient AAOx1. Overnight patient was bradycardic to the 40s with PACs. Patient was asymptomatic at this time. Per nursing, patient tolerated feeds last night. - Objective MAR Reviewed: Yes Vital Signs & Weight: Vital Signs (12 hours) Temp Pulse Resp BP Pulse Ox 09/19/20 04:00 97.2 F L 73 19 90/47 L 96 09/19/20 01:01 74 18 98/55 L 95 09/19/20 00:00 96/55 L 09/18/20 19:43 98.4 F 77 18 102/57 L 96 Weight Weight 72.665 kg Most Recent Monitor Data Heart Rate from ECG 77 NIBP 95/68 NIBP BP-Mean 77 Respiration from ECG 17 SpO2 99 I&O: 09/17/20 09/18/20 09/19/20 06:59 06:59 06:59 Intake Total 2340 237 Balance 2340 237 Result Diagrams: 09/19/20 03:53 09/19/20 03:53 EKG Reviewed by me: Yes (SR, SB 40s-70s with PACs ) Phys Exam - Physical Examination HEENT: moist MMs thrush improving Neck: supple, full ROM Respiratory: no wheezing, no rales, clear to auscultation bilateral Cardiovascular: RRR Gastrointestinal: soft, non-tender, positive bowel sounds Musculoskeletal: no edema right arm contracture Deviation from normal: AAOx1 Skin: no rash, normal turgor Dx/Plan - Plan Plan: SIRS, unknown source -Febrile to 101.9, tachycardic, tachypneic, WBC 24 with bandemia. LA normal. Unknown source at this time, covid negative, consider possible fungal septicemia vs. malignancy vs. pneumonia -UA does not show signs of infection -Oral Thrush- do not suspect peritonsillar abscess on exam -No skin breakdown over sacrum -Possible pneumonia RUL seen on CT chest, procal -Vanc and cefepime for broad spectrum coverage, will likely deescalating to abx that covers possible aspiration pneumonia -Blood cultures and urine cx: NG at 48hrs -peripheral smear: normocytic normochromatic anemia, absolute neutrophilia -started on IV micafungin, continue x1 week -repeat COVID negative -Chest XR: possible viral pneumonitis -respiratory viral panel and flu swab: negative -could be 2/2 to severe dehydration, fluid status markedly improved Dysphagia Oral Thrush -due to cognitive function, nystatin not possible -on IV micafungin x1 week -Discussed oral care with nurse -speech consulted: on Puree and honey-thick liquids, at aspiration risk, will need 1:1 supervision, discussion about PEG with family -Palliative care consulted for goals of care discussion with family Hypotension likely 2/2 dehydration vs infection, resolved -responded well to 30 ml/kg bolus -fluids as below, will continue but euvolemic -Monitor MAP -troponin: normal Hypovolemic Hypernatremia -Na 155 > 151 > 150 > 149 > 145 > 143 -likely chronic, possibly from difficulties with PO intake due to oral thrush and CVA history, speech consulted, see above -s/p ~2.5 L in ED -will switch to LR @ 75 mls/hr MIKE on CKD3A, resolved -baseline Cr appears to be around 1.50 -BUN/CR 66/3.0 >> 49/2.01 > 27/1.42 > 21/1.40 -FENA: likely pre-renal cause -Fluid resuscitation as above -Strict I/O -renally dose medications L Renal masses -seen on ch/abd/pelv CT -Renal US: renal cysts Constipation -stool ball on CT, concern for stercoral proctitis -s/p bedside disimpaction -BM overnight -s/p enema, will continue aggressive bowel regimen QT prolongation -avoid QT prolonging medications Transaminitis, resolved -Mildly elevated ALT and alk phos on admission -check AM cmp DM2 -continue home levemir, accuchecks with mild SSI HTN -hold home antihypertensives Hypothyroidism -continue home medications Dementia -aware, unknown baseline -family unsure of baseline, unable to reach senior care PMH of CVA and SAH -with RUE deficit Dispo: will continue to monitor and treat on tele, will f/u palliative recs Addendum - Attending - Attending Attestation Date/Time: 09/19/201930 I personally evaluated the patient and discussed the management with Dr. Baum. I agree with the History, Examination, Assessment and Plan documented above with any addition or exceptions noted below. Patient is at high risk for aspiration. Continue antibiotics. Goals of care regarding possible peg tube will be discussed with family.
[2020-09-19] MEDS: Levothyroxine Sodium 25 MCG TAB PO SCH (06:26)
[2020-09-19] MEDS: Aspirin 81 mg Enteric Coated Tablet PO SCH (06:26)
[2020-09-19] MEDS: Dextrose 5%-Lactated Ringers 1,000 ML IV SCH (08:41)
[2020-09-19] MEDS: Lactated Ringer's 1,000 ML IV SCH ×2 (08:46→21:31)
[2020-09-19] MEDS: Multivitamin W/ Minerals 1 TAB PO SCH (08:47)
[2020-09-19] MEDS: Bisacodyl 10 MG SUPP PR SCH ×2 (08:48→21:12)
[2020-09-19] MEDS: Famotidine/PF 20 mg/2ml Vial SLOW IVP SCH ×2 (08:48→21:11)
[2020-09-19] MEDS: Heparin 5,000 UNITS/ML VIAL SC SCH ×3 (08:48→21:11)
[2020-09-19] MEDS: Brimonidine Tartrate 0.2% Ophth Soln 5 ml Bottle EA EYE SCH ×2 (08:49→21:13)
[2020-09-19] MEDS: Insulin Glargine 30 UNITS in Pre-Filled Syringe 1 EACH SC SCH (10:19)
--- NOTE | 2020-09-19 11:44 | PRG ---
DATE OF SERVICE: 09/19/2020 SUBJECTIVE: Casey Cantu is a 74-year-old gentleman still encephalopathic. OBJECTIVE: VITAL SIGNS: Temperature 97, pulse 76, respirations 14, saturations on room air, blood pressure 108/55. CHEST: Anterior rhonchi. CARDIAC: Normal S1 and S2. No gallops. ABDOMEN: No masses. LABORATORY DATA: Pertinent for creatinine 1.40. IMPRESSION: Respiratory failure, aspiration pneumonia, encephalopathy, cerebrovascular accident, dysphagia. I agree with p.o. antibiotics as the patient is able to tolerate that. Pulmonary is going to follow at a distance. Eventually placement. Stop micafungin, vancomycin. . All cultures are negative. Job ID: [id number]
[2020-09-19] MEDS: Micafungin 100 MG in Sodium Chloride 0.9% 100 ML IVPB SCH (12:25)
[2020-09-19] MEDS ORDERED: Polyethylene Glycol 3350 17 GM Packet PO SCH (14:30)
[2020-09-19] MEDS: Amoxicillin/Potassium Clav 875 MG TAB PO SCH (21:11)
[2020-09-19] MEDS: Atorvastatin Calcium 20 MG TAB PO SCH (21:12)
[2020-09-19] MEDS: Insulin Glargine 15 UNITS in Pre-Filled Syringe 1 EACH SC SCH (22:48)
[2020-09-19] MEDS: Latanoprost 0.005% Ophth Soln 2.5 ml Bottle EA EYE SCH (22:49)
[2020-09-20 00:19] LABS: Vancomycin, Random 10.4 ug/mL (See Comment)
[2020-09-20 04:49] LABS: ALT (SGPT) 50 U/L (8-55); AST (SGOT) 47 U/L (5-34); Albumin 2.4 g/dL (3.4-4.8); Alkaline Phosphatase 111 U/L (40-110); Anion Gap 14 mmol/L (10-20); BUN (Urea Nitrogen) 18 mg/dL (8.4-25.7); Bilirubin, Total 0.6 mg/dL (0.2-1.2); Calc. Creatinine Clearance 53 mL/min (70-130); Carbon Dioxide 22 mmol/L (23-31); Chloride 112 mmol/L (98-107); Estimated GFR-MDRD 57; Globulin 3.1 g/dL (2.4-3.5); Glucose 98 mg/dL (83-110); Potassium 3.2 mmol/L (3.5-5.1); Protein, Total 5.5 g/dL (5.8-8.1); Sodium 145 mmol/L (136-145)
[2020-09-20] MEDS ORDERED: Vancomycin 1 GM in Premix Bag 1 BAG IVPB SCH (05:00)
[2020-09-20] MEDS: Levothyroxine Sodium 25 MCG TAB PO SCH (05:58)
[2020-09-20] MEDS: Aspirin 81 mg Enteric Coated Tablet PO SCH (05:58)
[2020-09-20 06:22] LABS: #Eosinphils 0.2 thou/uL (0.0-0.7); #Lymphocytes 2.3 thou/uL (1.20-3.40); #Monocytes 0.6 thou/uL (0.11-0.59); #Neutrophils 4.7 thou/uL (1.40-6.50); %Basophils 0.4 % (0.0-1.0); %Eosinophils 2.3 % (0.0-10.0); %Lymphocytes 29.5 % (21.0-51.0); %Monocytes 7.8 % (0.0-10.0); %Neutrophils 59.9 % (42.0-75.0); Hemoglobin 11.6 g/dL (14.0-18.0); Mean Corpuscular HGB CONC 32.2 g/dL (32.0-36.0); Mean Corpuscular Hemoglobin 28.1 pg (27.0-31.0); Mean Corpuscular Volume 87.1 fL (78.0-98.0); Mean Platelet Volume 10.4 fL (7.4-10.4); Platelet Count 205 thou/uL (130-400); RBC Distribution Width 11.9 % (11.5-14.5); Red Blood Cell (RBC) Count 4.12 mill/uL (4.70-6.10); White Blood Cell (WBC) Count 7.9 thou/uL (4.8-10.8)
--- NOTE | 2020-09-20 06:48 | PDOC.FM ---
- Subjective Subjective: AAOx1; denies pain. No acute events overnight. Tolerating PO intake and oral antibiotics. Per nursing, BM this am - Objective MAR Reviewed: Yes Vital Signs & Weight: Vital Signs (12 hours) Temp Pulse Resp BP Pulse Ox 09/20/20 03:39 98.4 F 63 18 108/60 96 09/19/20 19:20 98.1 F 72 20 120/57 L 95 Weight Weight 74.072 kg Most Recent Monitor Data Heart Rate from ECG 77 NIBP 95/68 NIBP BP-Mean 77 Respiration from ECG 17 SpO2 99 I&O: 09/18/20 09/19/20 09/20/20 06:59 06:59 06:59 Intake Total 2340 237 267 Balance 2340 237 267 Result Diagrams: 09/20/20 04:22 09/20/20 04:22 EKG Reviewed by me: Yes (SR 60s-70s) Phys Exam - Physical Examination HEENT: moist MMs No signs of thrush Neck: supple, full ROM Respiratory: no wheezing, clear to auscultation bilateral Cardiovascular: RRR, no significant murmur Gastrointestinal: soft, positive bowel sounds Musculoskeletal: no edema Contracture of right arm Deviation from normal: AAOx1 Skin: no rash Dx/Plan - Plan Plan: SIRS, unknown source -Febrile to 101.9, tachycardic, tachypneic, WBC 24 with bandemia. LA normal. Unknown source at this time, covid negative, consider possible fungal septicemia vs. malignancy vs. pneumonia -UA does not show signs of infection -Oral Thrush- do not suspect peritonsillar abscess on exam -No skin breakdown over sacrum -Possible pneumonia RUL seen on CT chest, procal -s/p Vanc and cefepime for broad spectrum coverage, now on oral antibiotics (Augmentin) -Blood cultures and urine cx: NG at 48hrs -peripheral smear: normocytic normochromatic anemia, absolute neutrophilia -s/p IV micafungin -repeat COVID negative -Chest XR: possible viral pneumonitis -respiratory viral panel and flu swab: negative -could be 2/2 to severe dehydration, fluid status markedly improved Dysphagia Oral Thrush, resolved -due to cognitive function, nystatin not possible -s/p micagungin -Discussed oral care with nurse -speech consulted: on Puree and honey-thick liquids, at aspiration risk, will need 1:1 supervision -Palliative care consulted for goals of care discussion with family -I personally talked with yesterday and she understands the aspiration risk and would like to proceed with oral feeding Hypotension likely 2/2 dehydration vs infection, resolved -responded well to 30 ml/kg bolus -s/p fluids -Monitor MAP -troponin: normal Hypovolemic Hypernatremia -Na 155 > 151 > 150 > 149 > 145 > 143 > 145 -likely chronic, possibly from difficulties with PO intake due to oral thrush and CVA history, speech consulted, see above -s/p ~2.5 L in ED -s/p mIVF -will replace electrolytes MIKE on CKD3A, resolved -baseline Cr appears to be around 1.50 -BUN/CR 66/3.0 >> 49/2.01 > 27/1.42 > 21/1.40 > 18/1.24 -FENA: likely pre-renal cause -Fluid resuscitation as above -Strict I/O -renally dose medications L Renal masses -seen on ch/abd/pelv CT -Renal US: renal cysts Constipation -stool ball on CT, concern for stercoral proctitis -s/p bedside disimpaction -BM overnight -s/p enema, will continue aggressive bowel regimen QT prolongation -avoid QT prolonging medications Transaminitis, resolved -Mildly elevated ALT and alk phos on admission -check AM cmp DM2 -continue home levemir, accuchecks with mild SSI HTN -hold home antihypertensives Hypothyroidism -continue home medications Dementia -aware, unknown baseline -family unsure of baseline, unable to reach [facility] PMH of CVA and SAH -with RUE deficit Dispo: likely DC to NH today or tomorrow with oral antibiotics, will f/u palliative recs Addendum - Attending - Attending Attestation Date/Time: 09/20/201931 I personally evaluated the patient and discussed the management with Dr. Baum. I agree with the History, Examination, Assessment and Plan documented above with any addition or exceptions noted below. Patient back to baseline. Will d/c back to [facility] on antibiotics.
[2020-09-20 07:13] LABS: Magnesium 1.7 mg/dL (1.6-2.6); Phosphorus 2.1 mg/dL (2.3-4.7)
[2020-09-20] MEDS ORDERED: Magnesium 2 GM/50 ML 2 GM in Premix Bag 1 BAG IVPB SCH (08:00)
[2020-09-20] MEDS ORDERED: Micafungin 100 MG in Sodium Chloride 0.9% 100 ML IVPB SCH (09:00)
[2020-09-20] MEDS: Insulin Glargine 30 UNITS in Pre-Filled Syringe 1 EACH SC SCH (09:27)
[2020-09-20] MEDS: Multivitamin W/ Minerals 1 TAB PO SCH (09:28)
[2020-09-20] MEDS: Famotidine/PF 20 mg/2ml Vial SLOW IVP SCH (09:28)
[2020-09-20] MEDS: Amoxicillin/Potassium Clav 875 MG TAB PO SCH (09:28)
[2020-09-20] MEDS: Heparin 5,000 UNITS/ML VIAL SC SCH ×2 (09:28→15:50)
[2020-09-20] MEDS: Brimonidine Tartrate 0.2% Ophth Soln 5 ml Bottle EA EYE SCH (09:29)
[2020-09-20] MEDS: Bisacodyl 10 MG SUPP PR SCH (09:29)
[2020-09-20] MEDS ORDERED: POTASSIUM PHOSPHATE IVPB SCH (10:00)
[2020-09-20] MEDS ORDERED: SODIUM CHLORIDE 0.9% IVPB SCH (10:00)
[2020-09-20] MEDS ORDERED: MAGNESIUM SULFATE IVPB SCH (10:00)
[2020-09-20 15:50] VITALS: BP 122/66; TEMP 97.8
--- NOTE | 2020-09-21 15:31 | DIS ---
DATE OF ADMISSION: 09/15/2020 DATE OF DISCHARGE: 09/20/2020 RESIDENT: Jaci Baum MD ADMITTING ATTENDING: Dr. Quiroz. DISCHARGE ATTENDING: Matilde Hamilton MD CONSULTS: 1. Pulmonology, Dr. Jose. 2. Palliative care. 3. PT/OT. 4. Speech. PROCEDURES/IMAGES: 1. Chest x-ray on 09/15/2020, no active cardiopulmonary abnormalities are demonstrated. 2. Brain CT on 09/15/2020, chronic type findings are stable. No acute intracranial abnormalities are demonstrated. 3. Chest, abdomen, and pelvis CT on 09/15/2020, fecal impaction in rectum. Increased risk for stercoral proctitis. Moderately large left renal masses. Hemorrhagic renal cyst versus solid tumors. Recommend renal ultrasound. Subtle right upper lobe infiltrate, possibly representing acute pneumonia. 4. Renal ultrasound on 09/16/2020, left renal cyst. 5. Chest x-ray on 09/16/2020, mild linear density in the perihilar regions and lung bases. Findings may signify volume loss, developing edema, or developing infectious pneumonitis. Recommend short-term followup, imaging of the chest following treatment. 6. Chest x-ray on 09/17/2020 with slight interval worsening of patchy ground-glass parenchymal infiltrate. Please correlate clinically from multifocal viral pneumonitis. PRIMARY DIAGNOSIS: Aspiration pneumonia. SECONDARY DIAGNOSES: 1. Hypovolemic hypernatremia. 2. Oral thrush. 3. Dysphagia. 4. Hypotension. 5. Acute kidney injury on chronic kidney disease 3A. 6. Left renal cyst. 7. Constipation. 8. QT prolongation. 9. Transaminitis. 10. Type 2 diabetes, insulin dependent. 11. Hypertension. 12. Hypothyroid. 13. Dementia. 14. History of cerebrovascular accident. DISCHARGE MEDICATIONS: 1. Losartan 100 mg p.o. daily. 2. Theragran M one tablet p.o. daily. 3. MiraLAX 17 g p.o. daily. 4. Glipizide 5 mg p.o. daily. 5. Travoprost one drop each eye q.p.m. 6. Tylenol 650 mg p.o. q.8 hours p.r.n. 7. Levemir 15 units subcutaneous at bedtime. 8. Amlodipine 5 mg p.o. daily. 9. Vitamin C of 1000 mg p.o. daily. 10. Zinc 50 mg p.o. daily. 11. Brimonidine tartrate one drop each eye b.i.d. 12. Nystatin 5 mL p.o. t.i.d. 13. Levothyroxine 25 mcg p.o. daily. 14. Novolin 3 units a day p.r.n. 15. Levemir 30 units subcutaneous q.a.m. 16. Hydrochlorothiazide 50 mg p.o. daily. 17. Aspirin 81 mg p.o. daily. 18. Lipitor 20 mg p.o. at bedtime. 19. Augmentin 875 mg p.o. q.12 hours to be continued for 6 more days for a total of one week of therapy. DISCONTINUED MEDICATIONS: None. HISTORY OF PRESENT ILLNESS AND HOSPITAL COURSE: The patient is a 74-year-old male who presented from his [facility] for dysphagia. He was recently diagnosed with thrush and was having difficulty swallowing. Per ER notes, concern for possible aspiration. In the ER, the patient was unable to give a history due to mental status and the patient's baseline was unknown. He was febrile to 101.9, tachypneic, and tachycardic. At that time, both the care home and family were unable to be reached. His CT was concerning for left kidney masses, large stool ball, and possible small right upper lobe infiltrate. He also had a white blood cell count of 24 with a bandemia. Sodium of 155 and a creatinine of 3. His ALT was also mildly elevated at 60. The patient's COVID test was negative. The UA was negative for signs of infection. In the ED, the patient was given vancomycin, cefepime, and a 30 mL/kg bolus and blood cultures were drawn at that time. After admission, the patient was continued on broad-spectrum antibiotics of vancomycin and cefepime, but was transitioned to Augmentin prior to discharge. The patient also received micafungin IV to treat his oral thrush because at the time of admission, the patient was unable to effectively use the nystatin. Speech was consulted and recommended a pureed and honey thick liquid diet with one-to-one supervision and known aspiration risk. Multiple discussions were had with the patient's who agreed to the aspiration risk as opposed to a PEG tube. The patient was extremely hypovolemic upon admission to the hospital and was found to have a sodium of 155. He received about 2.5 L of normal saline in the ED and was placed on maintenance IV fluids thereafter. He was originally placed on D5 half-normal saline, then D5W, then D5LR before IV fluids were ultimately discontinued due to improved p.o. intake. The patient's creatinine continued to improve after fluid resuscitation and on day of discharge, his creatinine was 1.24. The left renal mass is seen on CT, which showed the renal cyst on ultrasound. The patient's constipation was relieved with bedside disimpaction and aggressive bowel movement while hospitalized. QT prolonging medications were avoided throughout the patient's stay. His diabetes was controlled with his home Levemir and his home antihypertensives were held during hospitalization due to his original hypotension followed by low, but normal blood pressures. On day of discharge, the patient was tolerating p.o. intake and the patient had remained afebrile. The patient was discharged on p.o. antibiotic regimen of Augmentin to be continued for 6 days for a total of one week of p.o. antibiotics. His blood cultures and urine cultures were no growth at 48 hours. DISPOSITION: Stable. DISCHARGE INSTRUCTIONS: 1. Location: [facility]. 2. Diet: Pureed diet with aspiration risk. 3. Activity: As tolerated. 4. Followup: With Dr. Juan Antonio Clements in 7 days. Job ID: [id number]
--- NOTE | 2020-09-23 04:06 | PQF ---
CLINICAL DOCUMENTATION CLARIFICATION FORM: Dear : Matilde Hamilton Date / Time: 09/23/2020 Please exercise your independent, professional judgment in responding to the clarification form. Clinical indicators are provided on the bottom of this form for your review In our clinical opinion based on clinical findings below, can you please specify type of Encephalopathy? Please check appropriate box(es): [ ] Metabolic [ ] Toxic [ ] Unspecified [ ] Other (please specify) __Dementia with metabolic [ ] Unable to determine Physician Signature: Date/Time: For continuity of documentation, please document condition throughout progress notes and discharge summary. Thank You. To be completed by CDI/Coding staff for physician review: Present Clinical Indicators - Signs / Symptoms / Labs Results and Location in Medical Record [X] BP 126/69, Pulse 102, Resp 15, Temp 100.3 Vital signs 09/15 [X] Septic shock, Dehydration, MIKE ED notes p10 09/15 [X] altered mental status H&P p1 09/15 Dr Oconnell [X] Still encephalopathic PN p1 09/19 Dr Jose [X] CT of brain: scattered areas of encephalomalcia and chronic ischemic small vessels disease CT of brain 09/15 [X] Awake, alert, responds to some commands. Answers questions inconsistently H&P p2 09/15 Dr Oconnell Present Risk Factors Results and Location in Medical Record [X] 74 year-old Male H&P p1 09/15 Dr Gusmang [X] DM H&P p1 09/15 Dr Oconnell [X] CVA with residual of hemiplegia H&P p1 09/15 Dr Oconnell [X] HTN H&P p1 09/15 Dr Gusmang [X] Dementia H&P p1 09/15 Dr Gusmang [X] GERD H&P p1 09/15 Dr Gusmang [X] CKD 3 H&P p4 09/15 Dr Oconnell [X] Oral thrush H&P p4 09/15 Dr Oconnell [X] Pneumonia H&P p4 09/15 Dr Oconnell Present Treatments Results and Location in Medical Record [X] IV Lactated Ringers 1L JAN 05 [X] IV Vancomycin 1.25 JAN 05 [X] IV Cefepime 2 gm JAN 05 CDS/Lithograph Designer Signature: Anuradha Wayne Phone #: ext [phone] Date/Time: 09/23/2020 This is a permanent part of the Medical Record [facility]
--- NOTE | 2020-09-23 04:07 | PQF ---
CLINICAL DOCUMENTATION CLARIFICATION FORM: Dear : Matilde Hamilton Date / Time: 09/23/2020406 Please exercise your independent, professional judgment in responding to the clarification form. Clinical indicators are provided on the bottom of this form for your review Please check appropriate box(es): [ x] Acute Respiratory Failure [ ] Acute On Chronic Respiratory Failure [ ] Chronic Respiratory Failure [ ] Other diagnosis, please [ ] Unable to determine Physician Signature: Date/Time: For continuity of documentation, please document condition throughout progress notes and discharge summary. Thank You. To be completed by CDI/Coding staff for physician review: Present Clinical Indicators - Signs / Symptoms / Labs Results and Location in Medical Record [X] Blood Gas: Ph 7.37, PCO2 35.0, PCO2 73.1, O2 sat 94.1, Bsae excess-4.6 Laboratory 09/15 [X] CT Chest : Small right upper lobe infiltrate, possibly representing acute pneumonia Imaging Dr Beckford [X] BP 126/69, Pulse 102, Resp 15, Temp 100.3 Vital signs 09/15 [X] Concern for possible aspiration H&P p1 09/15 Dr Oconnell [X] Respiratory failure PN p1 09/19 Dr Jose Present Risk Factors Results and Location in Medical Record [X] 74 year-old Male H&P p1 09/15 Dr Oconnell [X] DM H&P p1 09/15 Dr Oconnell [X] HTN H&P p1 09/15 Dr Oconnell [X] Dementia H&P 09/15 Dr Oconnell [X] CKD 3 H&P p4 09/15 Dr Oconnell [X] Pneumonia H&P p4 09/15 Dr Oconnell Present Treatments Results and Location in Medical Record [X] IV Lactated Ringers 1L JAN 05 [X] IV Vancomycin 1.25 JAN 05 [X] IV Cefepime 2 gm JAN 05 [X] Pulmo consult Consult Dr Jose 09/17 CDS/Convenience Store Manager Signature: Anuradha Amador Rosana Phone #: ext [phone] Date/Time: 09/23/2020406 Acute Respiratory Failure: ABG pH < 7.35 or > 7.45; Decreased oxygen saturation (<90% room air or < 95% on oxygen); PCO2 > 50 mm Hg; PO2 < 60 mm Hg; Labored or rapid respirations ARDS: Dx Criteria [Perry ARDS]: Respiratory symptoms within one week of a known clinical insult (e.g. shock, infection, surgery, trauma) Bilateral opacities in CXR/Chest CT not due to CHF or fluid This is a permanent part of the Medical Record [facility]
--- NOTE | 2020-09-23 04:09 | PQF ---
CLINICAL DOCUMENTATION CLARIFICATION FORM: Dear : Matilde Hamilton Date / Time: 09/23/2020 Please exercise your independent, professional judgment in responding to the clarification form. Clinical indicators are provided on the bottom of this form for your review Please check appropriate box(es): [ x] Sepsis due to Aspiration Pneumonia [ ] Sepsis due to Oral Thrust [ ] Severe sepsis with associated acute organ dysfunction: [ ] Acute Kidney injury w/o ATN [ ] Acute Kidney Injury w ATN [ ] Encephalopathy (metabolic) (septic) [ ] Additional/Other: please specify: [ ] Septic Shock [ ] Localized infection without sepsis [ ] SIRS due to Dehydration with MIKE [ ] SIRS due to Dehydration without organ dysfunction [ ] Other diagnosis, please specify [ ] Unable to determine Physician Signature: Date/Time: For continuity of documentation, please document condition throughout progress notes and discharge summary. Thank You. To be completed by CDI/Coding staff for physician review: Present Clinical Indicators - Signs / Symptoms / Labs Results and Location in Medical Record [X] WBC 24.0, Plt count 323, Neutrophils 71, Band 17, Lactic acid 1.9 Laboratory 09/15 [X] Blood culture: No growth in 5 days Microbiology 09/15 [X] CT Chest : Small right upper lobe infiltrate, possibly representing acute pneumonia Imaging Dr Beckford [X] BP 126/69, Pulse 102, Resp 15, Temp 100.3 Vital signs 09/15 [X] SIRS scoring: Pt did meet Criteria ED notes p2 09/15 [X] Septic shock, Dehydration, MIKE ED notes p10 09/15 [X] Recently diagnosed with thrush H&P p1 09/15 Rehg [X] Concern for possible aspiration H&P p1 09/15 Re[facility] [X] Oral thrush H&P p4 09/15 Dr Rehg [X] Pneumonia H&P p4 09/15 Dr Gusmang [X] SIRS, unknown source H&P p4 09/15 Dr Gusmang [X] Chest Xray:There are stable patchy nonspecific areas of linear density Chest Xray 09/15 Present Risk Factors Results and Location in Medical Record [X] 74 year-old Male H&P p1 09/15 [facility] [X] DM H&P p1 09/15 Dr Rehg [X] CVA with residual of hemiplegia H&P p1 09/15 Dr Rehg [X] HTN H&P p1 09/15 Dr Rehg [X] Dementia H&P p1 09/15 Re[facility] [X] GERD H&P p1 09/15 Dr Rehg [X] CKD 3 H&P p4 09/15 Re[facility] [X] Oral thrush H&P p4 09/15 Rehg [X] Pneumonia H&P p4 09/15 Dr Oconnell Present Treatments Results and Location in Medical Record [X] IV Lactated Ringers 1L JAN 05 [X] IV Vancomycin 1.25 JAN 05 [X] IV Cefepime 2 gm JAN 05 [X] Sepsis protocol ED notes p2 09/15 [X] Pulmo consult Consult Dr Jose 09/17 CDS/Electrical Superintendent Signature: Anuradha Wayne Phone #: [phone] Date/Time: 09/23/2020 This is a permanent part of the Medical Record [facility]
== END 2020-09-20 17:00 | DRG 871 ==
LOC: ERS 15:12 → ERHOLD 20:44 → IMCU/EMU 09-16 22:54 → 2NO 09-18 11:40
PROVIDERS: ADMIT Family Medicine; ATTEND Family Medicine
DX: A41.9 Sepsis, unspecified organism (principal); J69.0 Pneumonitis due to inhalation of food and vomit; J18.9 Pneumonia, unspecified organism; J96.00 Acute respiratory failure, unspecified whether with hypoxia or hypercapnia; G93.41 Metabolic encephalopathy; N17.9 Acute kidney failure, unspecified; B37.0 Candidal stomatitis; I69.251 Hemiplegia and hemiparesis following other nontraumatic intracranial hemorrhage affecting right dominant side; E87.0 Hyperosmolality and hypernatremia; I13.0 Hypertensive heart and chronic kidney disease with heart failure and stage 1 through stage 4 chronic kidney disease, or unspecified chronic kidney disease; I95.9 Hypotension, unspecified; E86.0 Dehydration; Z20.828 Contact with and (suspected) exposure to other viral communicable diseases; R13.10 Dysphagia, unspecified; N18.31 Chronic kidney disease, stage 3a; N28.1 Cyst of kidney, acquired; K59.00 Constipation, unspecified; I45.81 Long QT syndrome; R74.01 Elevation of levels of liver transaminase levels; E11.22 Type 2 diabetes mellitus with diabetic chronic kidney disease; E03.9 Hypothyroidism, unspecified; F03.90 Unspecified dementia, unspecified severity, without behavioral disturbance, psychotic disturbance, mood disturbance, and anxiety; K21.9 Gastro-esophageal reflux disease without esophagitis; E78.00 Pure hypercholesterolemia, unspecified; I50.9 Heart failure, unspecified; H40.9 Unspecified glaucoma; G47.00 Insomnia, unspecified; I49.1 Atrial premature depolarization; R00.1 Bradycardia, unspecified; Z79.899 Other long term (current) drug therapy; Z79.82 Long term (current) use of aspirin; Z79.4 Long term (current) use of insulin; Z79.890 Hormone replacement therapy
CPT/HCPCS: 36415; 36416; 36600; 51701; 70450; 71045; 71250; 74177; 76770; 80053; 80202; 81003; 82533; 82570; 82805; 83605; 83735; 83880; 84100; 84145; 84300; 84443; 84484; 85025; 85060; 87040; 87086; 87633; 87635; 93005; 93010; 93306; 96365; 96366; 96367; J0692; J1450; J1644; J1815; J2248; J3370; J3475; J3490; J7050; J7070; P9045; S0028; U0002; U0003

== ENCOUNTER 2021-12-16 11:02 | Emergency (ER) | payer MEDICARE, MEDICAID | END 2021-12-16 12:23 | disposition home or self-care (01) | LOC: ERS 11:02 | DX: S82.831A Other fracture of upper and lower end of right fibula, initial encounter for closed fracture (principal); I10 Essential (primary) hypertension; E11.9 Type 2 diabetes mellitus without complications; K21.9 Gastro-esophageal reflux disease without esophagitis; E78.00 Pure hypercholesterolemia, unspecified; F03.90 Unspecified dementia, unspecified severity, without behavioral disturbance, psychotic disturbance, mood disturbance, and anxiety; G47.00 Insomnia, unspecified; G83.21 Monoplegia of upper limb affecting right dominant side; W19.XXXA Unspecified fall, initial encounter; Z86.73 Personal history of transient ischemic attack (TIA), and cerebral infarction without residual deficits; Z79.4 Long term (current) use of insulin; Z79.899 Other long term (current) drug therapy | CPT/HCPCS: 99283 ==

== ENCOUNTER 2024-01-24 09:41 | Inpatient (IN) | payer MEDICARE, MEDICAID ==
[2024-01-24 10:19] LABS: #Basophils Less than 0.03 10x3/uL (0.0-0.2); #Eosinphils Less than 0.03 10x3/uL (0.0-0.7); %Basophils 0.2 % (0.0-1.0); %Eosinophils 0.2 % (0.0-10.0); %Lymphocytes 17.3 % (21.0-51.0); %Monocytes 4.8 % (0.0-10.0); %Neutrophils 77.3 % (42.0-75.0); Hematocrit 46.2 % (42.0-52.0); Hemoglobin 14.9 g/dL (14.0-18.0); Mean Corpuscular HGB CONC 32.3 g/dL (32.0-36.0); Mean Corpuscular Hemoglobin 27.8 pg (27.0-31.0); Mean Corpuscular Volume 86.2 fL (78.0-98.0); Mean Platelet Volume 10.8 fL (7.4-10.4); Platelet Count 268 10x3/uL (130-400); RBC Distribution Width 12.6 % (11.5-14.5); Red Blood Cell (RBC) Count 5.36 mill/uL (4.70-6.10)
[2024-01-24 10:37] LABS: ALT (SGPT) 594 U/L (8-55); AST (SGOT) 506 U/L (5-34); Alkaline Phosphatase 228 U/L (40-110); Anion Gap 15 mmol/L (10-20); BUN (Urea Nitrogen) 20 mg/dL (8.4-25.7); Bilirubin, Total 1.8 mg/dL (0.2-1.2); Calc. Creatinine Clearance 0 mL/min (70-130); Carbon Dioxide 26 mmol/L (23-31); Chloride 105 mmol/L (98-107); Estimated GFR 44; Glucose 123 mg/dL (83-110); Lipase 16 U/L (8-78); Potassium 4.7 mmol/L (3.5-5.1); Sodium 141 mmol/L (136-145)
[2024-01-24] MEDS ORDERED: Iopamidol-370 76% 500 ML MDV (1 ML CHARGE) ONE (10:48)
[2024-01-24 16:06] LABS: Bilirubin Negative (Negative); Blood, Urine 1+ (Negative); CAUTI Indications for Culture < 2yrs of age; Clarity Turbid (Clear); Glucose, Urine (Dipstick) Normal (Negative); Ketone, Urine Negative (Negative); Leukocyte 500 Leu/uL (Negative); Nitrite Negative (Negative); Protein, Urine (Dipstick) 30 mg/dL (Neg-Trace); Specific Gravity, Urine 1.041 (1.002-1.036); Squamous Epithelial None Seen HPF (0-3); Urobilinogen 6 mg/dL (Less than 2); WBC/HPF Greater than 50 HPF (0-3); pH, Urine 7.5 (5.0-9.0)
[2024-01-24 16:31] LABS: Bacteria/HPF Rare-Few HPF (None Seen); Transitional Epithelial 0-3 HPF (None Seen)
[2024-01-24 16:32] LABS: Urine Culture Reflex Yes Yes
[2024-01-24] MEDS ORDERED: Bisacodyl 5 MG TAB PO PRN (17:28)
[2024-01-24] MEDS ORDERED: Ondansetron PF 4 MG/2 ML Vial IVP PRN (17:28)
[2024-01-24] MEDS ORDERED: Acetaminophen 325 MG TAB PO PRN (17:28)
[2024-01-24] MEDS ORDERED: HYDROcodone/Acetaminophen 5/325 mg Tablet PO PRN (17:28)
[2024-01-24] MEDS ORDERED: Ondansetron ODT 4 MG TAB PO PRN (17:28)
[2024-01-24] MEDS ORDERED: Dextrose 5% in Water 1,000 ML IV PRN (17:31)
[2024-01-24] MEDS ORDERED: Glucagon 1 MG/ML KIT IM PRN (17:31)
[2024-01-24] MEDS ORDERED: Dextrose 50% Abboject 50 ML SYRINGE SLOW IVP PRN (17:31)
[2024-01-24] MEDS ORDERED: HumaLOG 300 UNITS/3 ML VIAL SC PRN (17:31)
[2024-01-24] MEDS ORDERED: Sodium Chloride 0.9% 100 ML ONE (18:06)
[2024-01-24] MEDS ORDERED: cefTRIAXone (ROCEPHIN) 1 GM VIAL ONE (18:06)
[2024-01-24 18:18] LABS: HBSAg Index 0.17 S/CO (0-0.99); Hep B Surf Ag Non-Reactive S/CO (NonReactive)
[2024-01-24 18:19] LABS: Hep A IgM AB Non-Reactive (NonReactive); Hep A IgM S/CO 0.23 S/CO (0-0.79)
[2024-01-24 18:20] LABS: HBCM Index 0.14 S/CO (0-0.79); Hepatitis B Core IgM Abs Non-Reactive S/CO (NonReactive)
[2024-01-24] MEDS: Latanoprost 0.005% Ophth Soln 2.5 ml Bottle EA EYE SCH (22:00)
[2024-01-24] MEDS: Brimonidine Tartrate 0.2% Ophth Soln 5 ml Bottle EA EYE SCH (22:00)
[2024-01-24 23:36] VITALS: BMI 25.7
[2024-01-25] MEDS: Atorvastatin Calcium 20 MG TAB PO SCH (00:03)
[2024-01-25] MEDS: Heparin 5,000 UNITS/ML VIAL SC SCH (00:04)
[2024-01-25] MEDS: Sodium Bicarbonate Tab 325 MG TAB PO SCH (00:04)
[2024-01-25 04:52] LABS: #Basophils 0.03 10x3/uL (0.0-0.2); %Basophils 0.5 % (0.0-1.0); %Eosinophils 1.2 % (0.0-10.0); %Lymphocytes 35.8 % (21.0-51.0); %Monocytes 6.9 % (0.0-10.0); %Neutrophils 55.3 % (42.0-75.0); Hematocrit 37.9 % (42.0-52.0); Mean Corpuscular HGB CONC 31.7 g/dL (32.0-36.0); Mean Corpuscular Hemoglobin 27.5 pg (27.0-31.0); Mean Corpuscular Volume 86.7 fL (78.0-98.0); Mean Platelet Volume 11.2 fL (7.4-10.4); Platelet Count 237 10x3/uL (130-400); RBC Distribution Width 12.6 % (11.5-14.5); Red Blood Cell (RBC) Count 4.37 mill/uL (4.70-6.10)
[2024-01-25 05:20] LABS: ALT (SGPT) 358 U/L (8-55); AST (SGOT) 221 U/L (5-34); Albumin 3.1 g/dL (3.4-4.8); Alkaline Phosphatase 203 U/L (40-110); Anion Gap 14 mmol/L (10-20); BUN (Urea Nitrogen) 19 mg/dL (8.4-25.7); Bilirubin, Total 0.8 mg/dL (0.2-1.2); Calc. Creatinine Clearance 43 mL/min (70-130); Calcium 8.6 mg/dL (7.8-10.44); Carbon Dioxide 20 mmol/L (23-31); Chloride 110 mmol/L (98-107); Estimated GFR 55; Globulin 2.8 g/dL (2.4-3.5); Glucose 112 mg/dL (83-110); Potassium 4.1 mmol/L (3.5-5.1); Protein, Total 5.9 g/dL (5.8-8.1); Sodium 140 mmol/L (136-145)
[2024-01-25] MEDS: Losartan 25 MG TAB PO SCH (09:57)
[2024-01-25] MEDS: Polyethylene Glycol 3350 17 GM Packet PO SCH (09:58)
[2024-01-25] MEDS: Famotidine 20 MG TAB PO SCH (09:58)
[2024-01-25] MEDS: Multivitamin W/ Minerals 1 TAB PO SCH (09:58)
[2024-01-25] MEDS: Aspirin 81 mg Enteric Coated Tablet PO SCH (09:58)
[2024-01-25] MEDS: Insulin Glargine 30 UNITS/0.3 ML VIAL SC SCH (09:58)
[2024-01-25] MEDS: Levothyroxine Sodium 25 MCG TAB PO SCH (10:08)
[2024-01-25] MEDS: cefTRIAXone\\ROCEPHIN 1 GM in Sodium Chloride 0.9% 100 ML IVPB SCH (18:49)
[2024-01-26 06:56] LABS: ALT (SGPT) 240 U/L (8-55); AST (SGOT) 95 U/L (5-34); Albumin 3.1 g/dL (3.4-4.8); Alkaline Phosphatase 181 U/L (40-110); Anion Gap 10 mmol/L (10-20); BUN (Urea Nitrogen) 19 mg/dL (8.4-25.7); Bilirubin, Total 0.3 mg/dL (0.2-1.2); Calc. Creatinine Clearance 42 mL/min (70-130); Calcium 8.7 mg/dL (7.8-10.44); Carbon Dioxide 23 mmol/L (23-31); Chloride 109 mmol/L (98-107); Estimated GFR 54; Globulin 3.1 g/dL (2.4-3.5); Glucose 99 mg/dL (83-110); Protein, Total 6.2 g/dL (5.8-8.1); Sodium 138 mmol/L (136-145)
[2024-01-26] MEDS: Insulin Glargine 30 UNITS/0.3 ML VIAL SC SCH (09:58)
[2024-01-26] MEDS: HumaLOG 300 UNITS/3 ML VIAL SC PRN (12:37)
[2024-01-26 16:22] VITALS: BP 134/77; TEMP 97.6
[2024-01-27 17:08] LABS: Hep C IgG Ab NonReactive S/CO (NonReactive); Hep C Index 0.07 S/CO (0-0.79)
== END 2024-01-26 17:10 | DRG 689 ==
LOC: ERS 09:41 → SURG B 17:31
PROVIDERS: ADMIT Internal Medicine; ATTEND Internal Medicine
DX: N30.90 Cystitis, unspecified without hematuria (principal); G93.41 Metabolic encephalopathy; N17.9 Acute kidney failure, unspecified; I69.951 Hemiplegia and hemiparesis following unspecified cerebrovascular disease affecting right dominant side; I42.9 Cardiomyopathy, unspecified; F03.90 Unspecified dementia, unspecified severity, without behavioral disturbance, psychotic disturbance, mood disturbance, and anxiety; E03.9 Hypothyroidism, unspecified; E78.5 Hyperlipidemia, unspecified; H40.9 Unspecified glaucoma; R74.01 Elevation of levels of liver transaminase levels; I12.9 Hypertensive chronic kidney disease with stage 1 through stage 4 chronic kidney disease, or unspecified chronic kidney disease; N18.9 Chronic kidney disease, unspecified; Z79.899 Other long term (current) drug therapy
CPT/HCPCS: 36415; 36416; 71045; 74177; 76705; 80053; 80074; 81001; 83690; 83880; 84145; 85025; 87040; 87086; J0696; J1644; J1815; J3490; Q9967